=== PATIENT | male | born 1950 | race Caucasian/White ===

== ENCOUNTER 2021-06-10 10:28 | Emergency (ER) | payer MEDICARE, SELFPAY ==
[2021-06-10] VITALS (22 sets, daily range): BP systolic 115–162; BP diastolic 85–109; PULSE 57–95; RESP 10–20; O2SAT 93–100
--- NOTE | ~2021-06-10 | XR_ITS ---
EXAMINATION: XR chest 2V DATE: 06/10/2021 11:11 INDICATION: Supraventricular tachycardia with palpitations TECHNIQUE: PA and lateral views of the chest were obtained. COMPARISON: Chest radiograph dated 10/04/2009 FINDINGS: The lungs remain clear with no focal airspace opacities, pulmonary edema, pleural effusion or pneumot horax. The cardiomediastinal silhouette is normal. Interval progression of now moderate to severe tho racic spondylosis with minimal to mild chronic anterior wedging of a few mid and lower thoracic verte bral bodies. IMPRESSION: 1. No acute cardiopulmonary disease. Reviewed, dictated and finalized at location A. AGE HANDLER
--- NOTE | 2021-06-10 10:32 | ECG_ITS ---
Measurements Intervals [place] Rate: 91 P: 36 ME: 172 QRS: -2 QRSD: 84 T: 59 QT: 363 QTc: 448 Interpretive Statements SINUS RHYTHM VENTRICULAR PREMATURE COMPLEXES BORDERLINE ECG Electronically Signed On 06-10-2021 10:42:35 [employer] by Fei Shepherd D.O.
--- NOTE | 2021-06-10 11:37 | ED.ARRPALP ---
HPI - Arrhythmia/Palpitations General Chief Complaint: Arrhythmia/Palpitations Stated Complaint: fast heart rate - resolved Time Seen by Provider: 06/10/21 11:05 History of Present Illness HPI narrative: Patient is a 71-year-old male who presents to the ER with heart palpitations. Patient reports last week he had 15 minutes of a racing heart. Today he had 2 separate episodes that lasted approximately 15 minutes of his heart racing as well. During the second episode he contacted EMS. EMS found patient to be in SVT, they administered 6 mg of adenosine followed by an additional 12 his adenosine. Patient then converted back to normal sinus rhythm. No chest pain or chest pressure. No shortness of breath. He did feel like his heart was racing. Denies excessive caffeine use. He reports he had 2 sips of coffee today. He has been sleeping well on denies any external stressors. No previous history of arrhythmia. Related Data Allergies Allergy/AdvReac Type Severity Reaction Status Date / Time tetracycline Allergy Mild unknown Verified 02/08/19 13:05 Review of Systems Review of Systems: All systems reviewed & are unremarkable except as noted in HPI and below Constitutional: Constitutional: Denies chills, Denies fever(s) and Denies weakness Cardiovascular: Cardiovascular: Denies chest pain, Reports rapid heart rate and Denies radiating jaw, neck or arm pain Respiratory: Respiratory: Denies cough, Denies dyspnea and Denies wheezing Gastrointestinal: Gastrointestinal: Denies nausea and Denies vomiting PMFSH Past Medical History Medical History (Updated 06/10/21 @ 13:00 by Ming Burgess MD) Asthma Bleeding ulcer Surgical History Surgical History (Updated 06/10/21 @ 11:39 by Ming Burgess MD) History of sinus surgery Social History Social History (Updated 06/10/21 @ 11:39 by Ming Burgess MD) Smoking status: Never smoker Exam Narrative: GENERAL: Well-appearing, well-nourished, and in no acute distress. HEAD: Normocephalic, atraumatic. EYES: PERRL and EOMI. CHEST: Clear to auscultation. No respiratory distress. HEART: Regular rate and rhythm. No murmur heard. Normal peripheral pulses. ABDOMEN: Soft, nontender, nondistended. EXTREMITIES: Normal range of motion. No edema. SKIN: Warm, dry, no rash. NEURO: Alert and oriented x3. PSYCH: Normal mood and affect. Course Course Emergency Course: Discussed with Alfreda MILES with cardiology. Will work to get close follow-up in clinic with the patient. Would recommend metoprolol 12.5 mg as needed for palpitations given the fact that his heart rate is currently 62 bpm and his blood pressure is 115/86 mmHg. Discussed diagnosis and treatment plan with patient and in the follow-up verbalized understanding. Will give PCP follow-up but he needs to establish care with a PCP in general. Vital Signs Vital signs: Vital Signs Pulse Rate 95 06/10/21 10:28 Respiratory Rate 18 06/10/21 10:28 Pulse Oximetry 99 06/10/21 10:28 Pulse Rate 63 06/10/21 12:16 Respiratory Rate 12 06/10/21 12:16 Blood Pressure 115/86 06/10/21 12:16 Pulse Oximetry 97 06/10/21 12:16 MDM - Arrhythmia/Palpitations Lab Data Result diagrams: 06/10/21 12:18 06/10/21 12:18 Labs: Lab Results 06/10/21 06/10/21 06/10/21 Range/Units 12:18 12:18 12:18 WBC 8.0 (4.5-10.0) K/mm3 RBC 5.29 (4.6-6.20) M/mm3 Hgb 16.6 (14.0-18.0) g/dL Hct 48.0 (42.0-52.0) % MCV 90.7 (80-100) fl MCH 31.4 (26-34) pg MCHC 34.6 (32-36) g/dl RDW 12.8 (11.5-14.5) % Plt Count 240 (150-375) k/mm3 MPV 10.8 H (7.4-10.4) fl Immature Gran % (Auto) 0.4 (0-0.5) % Neut % (Auto) 74.5 H (45.5-73.1) % Lymph % (Auto) 15.3 L (18.3-44.2) % [place] % (Auto) 7.1 (2.6-8.5) % Eos % (Auto) 1.5 (0-4.4) % Baso % (Auto) 1.2 (0.2-1.2) % Lymph # (Auto) 1.23 (0.9-3.2) K/mm3 [place] # (Auto) 0.6 (0.1-
[2021-06-10] MEDS: ASPIRIN 81 MG CHEWABLE TABLET 324 MG PO (12:20)
[2021-06-10 12:26] LABS: Basophils Absolute Auto 0.1 K/mm3 (0.0-0.1); Basophils Percent Auto 1.2 % (0.2-1.2); Eosinophils Absolute Auto 0.1 K/mm3 (0-0.3); Eosinophils Percent Auto 1.5 % (0-4.4); Hemoglobin 16.6 g/dL (14.0-18.0); Immature Granulocyte Absolute 0.03 K/mm3 (0.00-0.031); Immature Granulocyte Percent A 0.4 % (0-0.5); Lymphocytes Absolute Auto 1.23 K/mm3 (0.9-3.2); Lymphocytes Percent Auto 15.3 % (18.3-44.2); Mean Corpuscular HGB Conc 34.6 g/dl (32-36); Mean Corpuscular Hemoglobin 31.4 pg (26-34); Mean Corpuscular Volume 90.7 fl (80-100); Mean Platelet Volume 10.8 fl (7.4-10.4); Monocytes Absolute Auto 0.6 K/mm3 (0.1-0.6); Monocytes Percent Auto 7.1 % (2.6-8.5); Neutrophils Percent Auto 74.5 % (45.5-73.1); Platelet Count Result 240 k/mm3 (150-375); Red Blood Count 5.29 M/mm3 (4.6-6.20); Red Cell Distribution Width 12.8 % (11.5-14.5)
[2021-06-10 12:39] LABS: Alanine Aminotransferase 34 U/L (4-50); Albumin Level 4.7 g/dL (3.5-5.1); Alkaline Phosphatase 40 U/L (38-126); Anion Gap 10 mmol/L (8-16); Aspartate Amino Transferase 29 U/L (17-59); Bilirubin,Total 0.6 mg/dL (0.2-1.3); Blood Urea Nitrogen 20 mg/dL (9-20); Calcium 9.4 mg/dL (8.4-10.2); Carbon Dioxide 22 mmol/L (22-30); Chloride 105 mmol/L (98-107); Estimated CRCL calculation 57 ml/min; Estimated Glomerular Filt Rate 60; Glucose 138 mg/dL (65-110); Lipase 144 U/L (23-300); Potassium 4.2 mmol/L (3.4-5.0); Prothrombin Time 12.8 Seconds (11.1-14.7); Sodium 137 mmol/L (137-145)
[2021-06-10 12:40] LABS: Partial Thromboplastin Time 30.5 SECONDS (22.3-36.8)
[2021-06-10 12:50] LABS: Troponin I 0.027 ng/mL (0.000-0.034)
== END 2021-06-10 13:39 | disposition home or self-care (01) ==
PROVIDERS: Emergency Medicine; Emergency Provider Emergency Medicine
DX: I47.1 Supraventricular tachycardia (principal); J45.909 Unspecified asthma, uncomplicated
CPT/HCPCS: 36415; 71046; 80053; 83690; 84484; 85025; 85610; 85730; 93005; 99284; A9270

== ENCOUNTER 2021-07-14 12:46 | Emergency (ER) | payer MEDICARE, SELFPAY ==
[2021-07-14 12:46] VITALS: BP 121/63; PULSE 71; RESP 16; TEMP 36.9; O2SAT 93
[2021-07-14 14:43] VITALS: BP 91/54; PULSE 70; RESP 20; TEMP 36.8; O2SAT 93
[2021-07-14 16:42] VITALS: BP 119/65; PULSE 63; RESP 20; TEMP 36.7; O2SAT 93
--- NOTE | 2021-07-14 17:57 | PC.NURSE ---
pt left dept with his , iv was removed. encouraged to return if they thought necessary. family agreeable to this
== END 2021-07-15 04:38 | disposition left against medical advice (07) ==
PROVIDERS: PCP Family Medicine
DX: R53.1 Weakness (principal)
CPT/HCPCS: 99199

== ENCOUNTER 2021-07-16 09:21 | Inpatient (IN) | payer MEDICARE, SELFPAY ==
[2021-07-16] VITALS (16 sets, daily range): BP systolic 117–129; BP diastolic 67–80; PULSE 57–65; RESP 16–24; TEMP 36.6–37.5; O2SAT 85–100
--- NOTE | ~2021-07-16 | XR_ITS ---
EXAMINATION: XR chest 1V portable DATE: 07/16/2021 09:47 INDICATION: Shortness of breath. COVID-19 pneumonia. TECHNIQUE: A single frontal view of the chest was obtained. COMPARISON: Chest 2 views 06/10/2021 FINDINGS: The lung volumes are small. There are airspace opacities in the mid and lower lung zones. N o pleural effusion or pneumothorax. The heart size is normal. IMPRESSION: 1. Small lung volumes with airspace opacities in the mid and lower lung zones, consistent with COVID- 19 pneumonia. Reviewed, dictated and finalized at location A. WORKER IMPRESSION: 1. Small lung volumes with airspace opacities in the mid and lower lung zones, consistent with COVID-19 pneumonia.
--- NOTE | 2021-07-16 09:30 | ECG_ITS ---
Measurements Intervals [place] Rate: 61 P: 39 [place]: 161 QRS: 40 QRSD: 82 T: 64 QT: 390 QTc: 395 Interpretive Statements SINUS RHYTHM NORMAL ECG Electronically Signed On 07-16-2021 9:58:17 [employer] by Fei Shepherd D.O.
[2021-07-16 10:02] LABS: Basophils Percent Auto 0.2 % (0.2-1.2); Hemoglobin 14.8 g/dL (14.0-18.0); Immature Granulocyte Absolute 0.02 K/mm3 (0.00-0.031); Immature Granulocyte Percent A 0.3 % (0-0.5); Lymphocytes Absolute Auto 0.88 K/mm3 (0.9-3.2); Lymphocytes Percent Auto 14.6 % (18.3-44.2); Mean Corpuscular HGB Conc 33.6 g/dl (32-36); Mean Corpuscular Hemoglobin 30.2 pg (26-34); Mean Corpuscular Volume 89.8 fl (80-100); Mean Platelet Volume 12.5 fl (7.4-10.4); Monocytes Absolute Auto 0.4 K/mm3 (0.1-0.6); Monocytes Percent Auto 6.3 % (2.6-8.5); Neutrophils Absolute Auto 4.8 K/mm3 (1.3-6.7); Neutrophils Percent Auto 78.6 % (45.5-73.1); Platelet Count Result 104 k/mm3 (150-375); Red Cell Distribution Width 13.1 % (11.5-14.5)
[2021-07-16 10:11] LABS: Lactic Acid Reflex 1.4 mmol/L (0.7-2.1)
[2021-07-16 10:15] LABS: Alanine Aminotransferase 257 U/L (4-50); Albumin Level 3.5 g/dL (3.5-5.1); Alkaline Phosphatase 80 U/L (38-126); Anion Gap 10 mmol/L (8-16); Aspartate Amino Transferase 510 U/L (17-59); Bilirubin,Total 0.9 mg/dL (0.2-1.3); Blood Urea Nitrogen 28 mg/dL (9-20); CRP 8.3 mg/dL (<1.0); Calcium 8.1 mg/dL (8.4-10.2); Carbon Dioxide 24 mmol/L (22-30); Chloride 97 mmol/L (98-107); Estimated CRCL calculation 39 ml/min; Estimated Glomerular Filt Rate 38; Glucose 119 mg/dL (65-110); Potassium 3.9 mmol/L (3.4-5.0); Prothrombin Time 13.2 Seconds (11.1-14.7); Sodium 131 mmol/L (137-145)
[2021-07-16 10:16] LABS: Partial Thromboplastin Time 34.1 SECONDS (22.3-36.8)
[2021-07-16 10:26] LABS: Large Platelets Present
--- NOTE | 2021-07-16 10:49 | ED.GENADULT ---
HPI - General Adult General Chief complaint: Weakness Stated complaint: COVID +-WEAKNESS Time Seen by Provider: 07/16/21 09:29 History of Present Illness HPI narrative: Patient is a 71-year-old male who presents ER with shortness of breath. Had a positive home Covid test. He has had loss of taste and smell. Ongoing since just after [place]. Unvaccinated. Came to the ER couple days ago but left before being seen. found that he was hypoxic into the 80s on their pulse oximeter at home and opted to come be evaluated. Related Data Home Medications Medication Instructions Recorded Confirmed fluticasone furoate 100 1 inh INHALATION DAILY 07/07/21 07/16/21 mcg-vilanterol 25 mcg/dose inhalation powder fluticasone propionate 50 2 spray INTRANASAL DAILY 07/07/21 07/16/21 mcg/actuation nasal spray,suspension Allergies Allergy/AdvReac Type Severity Reaction Status Date / Time tetracycline Allergy Mild Abdominal Verified 07/16/21 13:57 Pain Review of Systems Review of Systems: All systems reviewed & are unremarkable except as noted in HPI and below Constitutional: Constitutional: Reports chills, Reports fatigue and Reports fever(s) ENT: Reports nasal congestion and Denies sore throat Cardiovascular: Cardiovascular: Denies chest pain and Denies radiating jaw, neck or arm pain Respiratory: Respiratory: Denies chest congestion, Reports cough, Reports dyspnea and Denies wheezing Gastrointestinal: Gastrointestinal: Denies abdominal pain, Denies nausea and Denies vomiting Neurologic: Denies focal weakness and Denies numbness PMFSH Past Medical History Medical History Asthma Bleeding ulcer GERD (gastroesophageal reflux disease) Surgical History Surgical History History of sinus surgery Family History Family History Father Thyroid disorder Sibling Asthma Grandparent Cancer Cerebrovascular accident Social History Social History Smoking status: Never smoker Alcohol intake: current Drinks per week: 7 Alcohol use details: vodka Substance use: never Gender identity (if verbalized by the patient): Male Sexual Orientation (if Verbalized by the Patient): Straight or Heterosexual Exam Narrative: GENERAL: Well-appearing, well-nourished, and in no acute distress. HEAD: Normocephalic, atraumatic. Eyes: PERRL, EOMI. CHEST: Clear to auscultation. No respiratory distress. HEART: Regular rate and rhythm. Normal peripheral pulses. ABDOMEN: Soft, nontender, nondistended. EXTREMITIES: Normal range of motion. No edema. SKIN: Warm, dry, no rash. NEURO: Alert and oriented x3. PSYCH: Normal mood and affect. Course Course Emergency Course: Admit to hospitalist service. Updated patient's marine engineering teacher who had referred patient to the ER. Vital Signs Vital signs: Vital Signs Temperature 99.5 F 07/16/21 09:30 Pulse Rate 65 07/16/21 09:30 Respiratory Rate 20 07/16/21 09:30 Blood Pressure 120/67 07/16/21 09:30 Pulse Oximetry 85 L 07/16/21 09:30 Temperature 99.5 F 07/16/21 09:30 Pulse Rate 59 L 07/16/21 12:54 Respiratory Rate 19 07/16/21 12:54 Blood Pressure 120/69 07/16/21 12:00 Pulse Oximetry 94 07/16/21 12:00 Medical Decision Making Vital Signs Vital Signs: Vital Signs Temperature 99.5 F 07/16/21 09:30 Pulse Rate 65 07/16/21 09:30 Respiratory Rate 20 07/16/21 09:30 Blood Pressure 120/67 07/16/21 09:30 Pulse Oximetry 85 L 07/16/21 09:30 Temperature 99.5 F 07/16/21 09:30 Pulse Rate 59 L 07/16/21 12:54 Respiratory Rate 19 07/16/21 12:54 Blood Pressure 120/69 07/16/21 12:00 Pulse Oximetry 94 07/16/21 12:00 Lab Data Result diagrams: 07/16/21 09:51 07/16/21 09:51
[2021-07-16 12:14] LABS: EDCOVIDSCREEN Positive (Negative)
--- NOTE | 2021-07-16 14:00 | PC.NURSE ---
Pt states he still feels weak all over, denies headache and chest pain,
--- NOTE | 2021-07-16 16:14 | PC.NURSE ---
Spoke with , Ida, gave update on patient.
--- NOTE | 2021-07-16 16:30 | PC.NURSE ---
ordered pt dinner tray
--- NOTE | 2021-07-16 19:17 | PC.NURSE ---
Report received from JOSHUA Sigala. [facility]AR faxed per off going RN as bed assignment received.
--- NOTE | 2021-07-16 19:50 | PC.NURSE ---
Attempt to call report, floor unable to take at present time.
--- NOTE | 2021-07-16 20:45 | ADMGEN ---
This patient, Bill Muir, was admitted to [facility] Surg Room 317-01. Patient/family oriented to hospital policies and general routines including ID bracelet, bed and alarms, visiting hours, pain management, procedures, bathroom and other care routines, personal items, smoking policy, room service/diet, and visiting hours. Information on how to activate the Rapid Response Team has been discussed. Patient/Family are encouraged to report perceived risks to care and to ask questions if they do not understand what they are told or what they should do.
[2021-07-17] VITALS (7 sets, daily range): BP systolic 107–128; BP diastolic 67–75; PULSE 54–78; RESP 16–20; TEMP 36.2–36.8; O2SAT 90–96
--- NOTE | 2021-07-17 00:55 | PM.IMHP ---
H&P: HPI History of Present Illness Date/Time: 07/17/21 00:55 Chief Complaint: Fatigue Narrative: This is a 71-year-old male with past medical history significant for asthma, gastroesophageal reflux disease, peptic ulcer. Patient presented to the emergency room due to fatigue, fevers, chills, night sweats, low energy, poor appetite. Patient tested positive for COVID and things did not get better, progressively got worse. In emergency room preliminary workup was significant for chest x-ray with bilateral infiltrates. Patient states that he had a gathering at home with family members on and 1 0 his relative tested positive for COVID as well. Review of Systems Review of Systems: Fatigue poor appetite Constitutional: Constitutional: Reports chills, Reports fatigue, Reports fever(s), Reports lethargy, Reports malaise, Reports poor appetite and Reports weakness Eyes: Eyes: Denies change in vision ENT: Denies dysphagia, Denies nasal congestion, Denies nasal discharge, Denies nasal obstruction and Denies odynophagia Cardiovascular: Cardiovascular: Denies chest pain, Denies pedal edema, Denies leg edema, Denies radiating jaw, neck or arm pain, Denies palpitations, Reports dyspnea, Denies dyspnea on exertion and Denies orthopnea Respiratory: Respiratory: Reports cough, Denies excessive phlegm production and Reports dyspnea Comments: scanty production of sputum Gastrointestinal: Gastrointestinal: Denies abdominal pain, Denies dyspepsia, Denies heartburn, Denies diarrhea, Denies nausea and Denies vomiting Genitourinary: Genitourinary: Denies dysuria Musculoskeletal: Musculoskeletal: Denies back pain, Reports myalgias, Denies arthralgias and Denies joint swelling Integumentary/Breasts: Skin/Breast: Denies rash Neurologic: Denies focal weakness and Denies Sensory deficit (Neuro) Psychiatric: Psychiatric: Reports no additional psychiatric complaints and Reports as per HPI Endocrine: Endocrine: Denies cold intolerance, Denies excessive sweating, Denies polyphagia, Denies polydipsia and Denies palpitations Hematologic/Lymphatic: Hematologic/Lymphatic: Reports no additional hematologic/lymphatic complaints and Reports as per HPI Allergic/Immunologic: Allergic/Immunologic: Reports no additional allergic/immunologic complaints and Reports as per HPI [facility] Past Medical History Medical History Asthma Bleeding ulcer GERD (gastroesophageal reflux disease) Surgical History Surgical History History of sinus surgery Family History Family History Father Thyroid disorder Sibling Asthma Grandparent Cancer Cerebrovascular accident Social History Social History Smoking status: Never smoker Alcohol intake: current Drinks per week: 6 Alcohol use details: vodka Substance use: never Gender identity (if verbalized by the patient): Male Sexual Orientation (if Verbalized by the Patient): Straight or Heterosexual Spiritual care concerns: No Meds Home Medications and Allergies Home Medications Medication Instructions Recorded Confirmed Type fluticasone furoate 100 1 inh INHALATION DAILY 07/07/21 07/16/21 History mcg-vilanterol 25 mcg/dose inhalation powder fluticasone propionate 50 2 spray INTRANASAL DAILY 07/07/21 07/16/21 History mcg/actuation nasal spray,suspension Allergies Allergy/AdvReac Type Severity Reaction Status Date / Time tetracycline Allergy Mild Abdominal Verified 07/16/21 13:57 Pain Vital Signs Vital Signs - 24 hr 07/16/21 09:30 07/16/21 09:50 07/16/21 09:51 Temperature 99.5 F Pulse Rate 65 63 Respiratory Rate 20 Blood Pressure 120/67 Pulse Oximetry 85 L 97 07/16/21 11:27 07/16/21 11:44 07/16/21 11:47 Temperature P
[2021-07-17 02:02] LABS: Prothrombin Time 13.2 Seconds (11.1-14.7)
[2021-07-17 02:05] LABS: Alanine Aminotransferase 244 U/L (4-50); Estimated CRCL calculation 49 ml/min; Estimated Glomerular Filt Rate 50
[2021-07-17] MEDS: cefTRIAXone 2 GM in SODIUM CHLORIDE 0.9% IV 100 ML 200 ML IVPB (02:10)
[2021-07-17] MEDS: REMDESIVIR 200 MG/NS 250 ML 200 MG/250 ML BAG 250 MG IVPB (03:11)
[2021-07-17] MEDS: FLUTICASONE/SALMETEROL 115-21 MCG (*SP) INHALER 2 PUFF INHALATION (07:53)
[2021-07-17] MEDS: ALBUTEROL SULFATE (*SP) INHALER 2 PUFF INHALATION ×2 (07:53→14:32)
[2021-07-17] MEDS: FLUTICASONE PROPIONATE 0.05% NA SPR 16 GM BTL (*BKC) 2 SPRAY NASAL (09:32)
[2021-07-17] MEDS: PANTOPRAZOLE 40 MG TABLET PO (09:32)
[2021-07-17] MEDS: ENOXAPARIN 40 MG/0.4 ML SYRINGE SUB-Q ×2 (09:33→22:06)
--- NOTE | 2021-07-17 10:00 | PM.IMPN ---
Progress Note: A&P Assessment and Plan (1) Pneumonia due to 2019-nCoV: Code(s): U07.1 - COVID-19; J12.82 - Pneumonia due to coronavirus disease 2019 Status: Acute Assessment and Plan: Tested positive either 07/14-07/15 chest xray: Small lung volumes with airspace opacities in the mid and lower lung zones, consistent with COVID-19 pneumonia. Check inflammatory markers in the am Sputum culture ordered Blood cultures pending IS and cornette therapy Supplemental oxygen wean to maintain saturations greater than 92% Continue Rocephin Zithromax for antibacterial. Continue remdesivir and dexamethasone Supportive care (2) Hypoxia: Code(s): R09.02 - Hypoxemia Status: Acute Assessment and Plan: Patient dropped into the 80s oxygen applied Spot check pulse ox Continue to monitor Breathing treatments (3) Asthma: Qualifiers: Asthma severity: unspecified severity Asthma persistence: unspecified Asthma complication type: unspecified Qualified Code(s): J45.909 - Unspecified asthma, uncomplicated Code(s): J45.909 - Unspecified asthma, uncomplicated Status: Acute Assessment and Plan: Continue home meds Not actively wheezing Continue to monitor (4) GERD (gastroesophageal reflux disease): Code(s): K21.9 - Gastro-esophageal reflux disease without esophagitis Status: Acute Assessment and Plan: PPI as needed (5) Transaminitis: Code(s): R74.01 - Elevation of levels of liver transaminase levels Status: Acute Assessment and Plan: AST/ALT 510/257 Continue to trend labs hep in the am no complaints of pain Consider RUQ pain (6) OZZY (acute kidney injury): Code(s): N17.9 - Acute kidney failure, unspecified Status: Acute Assessment and Plan: BUN/CR 28/1.80 Probably has a component of dehydration trend labs Creatinine is down to 1.40 Hold on IV fluids for now with covid diagnosis Time Spent With Patient Time with patient: 25 - 35 minutes Subjective Date/time seen: 07/17/21 10:00 Interval history: Date/Time: 07/17/21 00:55 Narrative: This is a 71-year-old male with past medical history significant for asthma, gastroesophageal reflux disease, peptic ulcer. Patient presented to the emergency room due to fatigue, fevers, chills, night sweats, low energy, poor appetite. Patient tested positive for COVID and things did not get better, progressively got worse. In emergency room preliminary workup was significant for chest x-ray with bilateral infiltrates. Patient states that he had a gathering at home with family members on and 1 0 his relative tested positive for COVID as well. Date/Time 07/17/21 1000 Patient is lying in bed. Patient stated that he has not been up since he has gotten here. He does say that he is very weak and congested. He is not short of breath at rest however he does not know be short of breath with activity since he has not been out of that. Patient stated that he is tired with no energy and denies chest pain, sweats, fevers, chills, abdominal pain, nausea, vomiting, diarrhea, constipation. Patient does have a cough which he said is productive if he really needed to be however it is mostly dry. Patient did say that his appetite was okay however everything taste bland. Patient was tested positive either Wednesday or Wednesday of this week and he is not currently vaccinated. Review of Systems Review of Systems: All systems reviewed & are unremarkable except as noted in HPI and below Exam Const: General: cooperative, comfortable, no acute distress, well developed, alert, awake and ill appearing Nutritional Appearance: thin Orientation/consciousness: oriented to person, oriented to place, oriented to time and patient oriented x3 HENMT: Head: normal to inspection, normocephalic and atraumatic Ears: hearing
--- NOTE | 2021-07-17 10:00 | P.PNIM_ITS ---
Progress Note: A&P Assessment and Plan (1) Pneumonia due to 2019-nCoV: Code(s): U07.1 - COVID-19; J12.82 - Pneumonia due to coronavirus disease 2019 Status: Acute Assessment and Plan: * Tested positive either 07/14-07/15 * chest xray: Small lung volumes with airspace opacities in the mid and lower lung zones, consistent with COVID-19 pneumonia. * Check inflammatory markers in the am * Sputum culture ordered * Blood cultures pending * IS and cornette therapy * Supplemental oxygen wean to maintain saturations greater than 92% * Continue Rocephin Zithromax for antibacterial. * Continue remdesivir and dexamethasone * Supportive care (2) Hypoxia: Code(s): R09.02 - Hypoxemia Status: Acute Assessment and Plan: * Patient dropped into the 80s * oxygen applied * Spot check pulse ox * Continue to monitor * Breathing treatments (3) Asthma: Qualifiers: Asthma severity: unspecified severity Asthma persistence: unspecified Asthma complication type: unspecified Qualified Code(s): J45.909 - Unspecified asthma, uncomplicated Code(s): J45.909 - Unspecified asthma, uncomplicated Status: Acute Assessment and Plan: * Continue home meds * Not actively wheezing * Continue to monitor (4) GERD (gastroesophageal reflux disease): Code(s): K21.9 - Gastro-esophageal reflux disease without esophagitis Status: Acute Assessment and Plan: * PPI as needed (5) Transaminitis: Code(s): R74.01 - Elevation of levels of liver transaminase levels Status: Acute Assessment and Plan: * AST/ALT 510/257 * Continue to trend labs * hep in the am * no complaints of pain * Consider RUQ pain (6) OZZY (acute kidney injury): Code(s): N17.9 - Acute kidney failure, unspecified Status: Acute Assessment and Plan: * BUN/CR 28/1.80 * Probably has a component of dehydration * trend labs * Creatinine is down to 1.40 * Hold on IV fluids for now with covid diagnosis Time Spent With Patient Time with patient: 25 - 35 minutes Subjective Date/time seen: 07/17/21 10:00 Interval history: Date/Time: 07/17/21 00:55 Narrative: This is a 71-year-old male with past medical history significant for asthma, gastroesophageal reflux disease, peptic ulcer. Patient presented to the emergency room due to fatigue, fevers, chills, night sweats, low energy, poor appetite. Patient tested positive for COVID and things did not get better, progressively got worse. In emergency room preliminary workup was significant for chest x-ray with bilateral infiltrates. Patient states that he had a gathering at home with family members on and 1 0 his relative tested positive for COVID as well. Date/Time 07/17/21 1000 Patient is lying in bed. Patient stated that he has not been up since he has gotten here. He does say that he is very weak and congested. He is not short of breath at rest however he does not know be short of breath with activity since he has not been out of that. Patient stated that he is tired with no energy and denies chest pain, sweats, fevers, chills, abdominal pain, nausea, vomiting, diarrhea, constipation. Patient does have a cough which he said is productive if he really needed to be however it is mostly dry. Patient did say that his appetite was okay however everything taste bland. Patient was tested positive either Wednesday or
[2021-07-17] MEDS: REMDESIVIR 100 MG/NS 250 ML 100 MG/250 ML BAG 250 MG IVPB (22:05)
--- NOTE | 2021-07-17 23:29 | PCRCNOTE ---
Albuterol inhaler scheduled for 07/17/21 at 20:00 not administered. RT not available during administration window due to priorities in the Emergency Department.
[2021-07-18] VITALS (9 sets, daily range): BP systolic 113–128; BP diastolic 69–75; PULSE 52–82; RESP 14–20; TEMP 36.5–37.1; O2SAT 90–97
[2021-07-18] MEDS: ALBUTEROL SULFATE (*SP) INHALER 2 PUFF INHALATION ×4 (02:19→19:18)
[2021-07-18] MEDS: cefTRIAXone 2 GM in SODIUM CHLORIDE 0.9% IV 100 ML 200 ML IVPB ×2 (02:26→21:10)
[2021-07-18 07:27] LABS: Basophils Percent Auto 0.1 % (0.2-1.2); Hematocrit 43.4 % (42.0-52.0); Hemoglobin 14.6 g/dL (14.0-18.0); Immature Granulocyte Percent A 1.3 % (0-0.5); Lymphocytes Absolute Auto 0.54 K/mm3 (0.9-3.2); Lymphocytes Percent Auto 7.3 % (18.3-44.2); Mean Corpuscular HGB Conc 33.6 g/dl (32-36); Mean Corpuscular Hemoglobin 30.2 pg (26-34); Mean Corpuscular Volume 89.7 fl (80-100); Mean Platelet Volume 11.9 fl (7.4-10.4); Monocytes Absolute Auto 0.7 K/mm3 (0.1-0.6); Monocytes Percent Auto 9.4 % (2.6-8.5); Neutrophils Absolute Auto 6.1 K/mm3 (1.3-6.7); Neutrophils Percent Auto 81.9 % (45.5-73.1); Platelet Count Result 200 k/mm3 (150-375); Red Blood Count 4.84 M/mm3 (4.6-6.20); White Blood Count 7.4 K/mm3 (4.5-10.0)
[2021-07-18 07:39] LABS: INR 1.1; Prothrombin Time 13.8 Seconds (11.1-14.7)
[2021-07-18 07:42] LABS: D Dimer 0.59 ug/mL (<0.48)
[2021-07-18 07:50] LABS: Crenated RBC 1+ (NORMAL); Platelet Estimate Adequate (Adequate)
--- NOTE | 2021-07-18 08:10 | P.PNIM_ITS ---
Progress Note: A&P Assessment and Plan (1) Pneumonia due to 2019-nCoV: Code(s): U07.1 - COVID-19; J12.82 - Pneumonia due to coronavirus disease 2019 Status: Acute Assessment and Plan: * Tested positive either 07/14-07/15 * chest xray: Small lung volumes with airspace opacities in the mid and lower lung zones, consistent with COVID-19 pneumonia. * Inflammatory markers: Dimer 0.59, Ferritin >2000, LDH 942, CRP 5.9 * Sputum culture shows gram positive cocci in clusters , gram negative bacilli, and moderate WBC * Blood cultures NGTD * IS and cornette therapy * Supplemental oxygen wean to maintain saturations greater than 92% * Continue Rocephin Zithromax for antibacterial. * Tailor antibiotics to culture results * Continue remdesivir and dexamethasone * Supportive care (2) Hypoxia: Code(s): R09.02 - Hypoxemia Status: Acute Assessment and Plan: * Patient dropped into the 80s * oxygen applied, was able to wean to RA * Spot check pulse ox * Continue to monitor * Breathing treatments (3) Asthma: Qualifiers: Asthma severity: unspecified severity Asthma persistence: unspecified Asthma complication type: unspecified Qualified Code(s): J45.909 - Unspecified asthma, uncomplicated Code(s): J45.909 - Unspecified asthma, uncomplicated Status: Acute Assessment and Plan: * Continue home meds * Not actively wheezing * Continue to monitor (4) GERD (gastroesophageal reflux disease): Code(s): K21.9 - Gastro-esophageal reflux disease without esophagitis Status: Acute Assessment and Plan: * PPI as needed (5) Transaminitis: Code(s): R74.01 - Elevation of levels of liver transaminase levels Status: Acute Assessment and Plan: * AST/ALT 510/257, trending down 109/119 * Continue to trend labs * hep in the am * no complaints of pain * Consider RUQ pain (6) OZZY (acute kidney injury): Code(s): N17.9 - Acute kidney failure, unspecified Status: Acute Assessment and Plan: * BUN/CR 28/1.80 * Probably has a component of dehydration * trend labs * Creatinine is down to 1.30, seems correcting * Hold on IV fluids for now with covid diagnosis Time Spent With Patient Time with patient: 25 - 35 minutes Subjective Date/time seen: 07/18/21 0810 Interval history: Date/Time: 07/17/21 00:55 Narrative: This is a 71-year-old male with past medical history significant for asthma, gastroesophageal reflux disease, peptic ulcer. Patient presented to the emergency room due to fatigue, fevers, chills, night sweats, low energy, poor appetite. Patient tested positive for COVID and things did not get better, progressively got worse. In emergency room preliminary workup was significant for chest x-ray with bilateral infiltrates. Patient states that he had a gathering at home with family members on and 1 0 his relative tested positive for COVID as well. Date/Time 07/17/21 1000 Patient is lying in bed. Patient stated that he has not been up since he has gotten here. He does say that he is very weak and congested. He is not short of breath at rest however he does not know be short of breath with activity since he has not been out of that. Patient stated that he is tired with no energy and denies chest pain, sweats, fevers, chills, abdominal pain, nausea, vomiting, diarrhea, constipation. Patient does have a cough which
--- NOTE | 2021-07-18 08:10 | PM.IMPN ---
Progress Note: A&P Assessment and Plan (1) Pneumonia due to 2019-nCoV: Code(s): U07.1 - COVID-19; J12.82 - Pneumonia due to coronavirus disease 2019 Status: Acute Assessment and Plan: Tested positive either 1/3-/ chest xray: Small lung volumes with airspace opacities in the mid and lower lung zones, consistent with COVID-19 pneumonia. Inflammatory markers: Dimer 0.59, Ferritin >2000, LDH 942, CRP 5.9 Sputum culture shows gram positive cocci in clusters , gram negative bacilli, and moderate WBC Blood cultures NGTD IS and cornette therapy Supplemental oxygen wean to maintain saturations greater than 92% Continue Rocephin Zithromax for antibacterial. Tailor antibiotics to culture results Continue remdesivir and dexamethasone Supportive care (2) Hypoxia: Code(s): R09.02 - Hypoxemia Status: Acute Assessment and Plan: Patient dropped into the 80s oxygen applied, was able to wean to RA Spot check pulse ox Continue to monitor Breathing treatments (3) Asthma: Qualifiers: Asthma severity: unspecified severity Asthma persistence: unspecified Asthma complication type: unspecified Qualified Code(s): J45.909 - Unspecified asthma, uncomplicated Code(s): J45.909 - Unspecified asthma, uncomplicated Status: Acute Assessment and Plan: Continue home meds Not actively wheezing Continue to monitor (4) GERD (gastroesophageal reflux disease): Code(s): K21.9 - Gastro-esophageal reflux disease without esophagitis Status: Acute Assessment and Plan: PPI as needed (5) Transaminitis: Code(s): R74.01 - Elevation of levels of liver transaminase levels Status: Acute Assessment and Plan: AST/ALT 510/257, trending down 109/119 Continue to trend labs hep in the am no complaints of pain Consider RUQ pain (6) OZZY (acute kidney injury): Code(s): N17.9 - Acute kidney failure, unspecified Status: Acute Assessment and Plan: BUN/CR 28/1.80 Probably has a component of dehydration trend labs Creatinine is down to 1.30, seems correcting Hold on IV fluids for now with covid diagnosis Time Spent With Patient Time with patient: 25 - 35 minutes Subjective Date/time seen: 07/18/21 0810 Interval history: Date/Time: 07/17/21 00:55 Narrative: This is a 71-year-old male with past medical history significant for asthma, gastroesophageal reflux disease, peptic ulcer. Patient presented to the emergency room due to fatigue, fevers, chills, night sweats, low energy, poor appetite. Patient tested positive for COVID and things did not get better, progressively got worse. In emergency room preliminary workup was significant for chest x-ray with bilateral infiltrates. Patient states that he had a gathering at home with family members on and 1 0 his relative tested positive for COVID as well. Date/Time 07/17/21 1000 Patient is lying in bed. Patient stated that he has not been up since he has gotten here. He does say that he is very weak and congested. He is not short of breath at rest however he does not know be short of breath with activity since he has not been out of that. Patient stated that he is tired with no energy and denies chest pain, sweats, fevers, chills, abdominal pain, nausea, vomiting, diarrhea, constipation. Patient does have a cough which he said is productive if he really needed to be however it is mostly dry. Patient did say that his appetite was okay however everything taste bland. Patient was tested positive either Wednesday or Wednesday of this week and he is not currently vaccinated. Date/Time 07/18/21 0810 Patient was lying in bed. Was able to titrate patient to room air. Patient did stand up and is able to walk to the trash can. He also was able to maintain his saturations above 90. Patient did say that he has an occasion
[2021-07-18] MEDS: PANTOPRAZOLE 40 MG TABLET PO (08:27)
[2021-07-18] MEDS: ENOXAPARIN 40 MG/0.4 ML SYRINGE SUB-Q ×2 (08:27→21:09)
[2021-07-18] MEDS: FLUTICASONE PROPIONATE 0.05% NA SPR 16 GM BTL (*BKC) 2 SPRAY NASAL (08:28)
[2021-07-18 08:32] LABS: Alanine Aminotransferase 189 U/L (4-50); Albumin Level 3.6 g/dL (3.5-5.1); Alkaline Phosphatase 64 U/L (38-126); Anion Gap 11 mmol/L (8-16); Aspartate Amino Transferase 109 U/L (17-59); Bilirubin,Total 0.4 mg/dL (0.2-1.3); Blood Urea Nitrogen 33 mg/dL (9-20); CRP 5.9 mg/dL (<1.0); Calcium 8.4 mg/dL (8.4-10.2); Carbon Dioxide 19 mmol/L (22-30); Chloride 103 mmol/L (98-107); Estimated CRCL calculation 53 ml/min; Estimated Glomerular Filt Rate 55; Glucose 186 mg/dL (65-110); Lactate Dehydrogenase 942 U/L (313-618); Magnesium 2.5 mg/dL (1.6-2.3); Potassium 4.2 mmol/L (3.4-5.0); Sodium 133 mmol/L (137-145)
[2021-07-18] MEDS: FLUTICASONE/SALMETEROL 115-21 MCG (*SP) INHALER 2 PUFF INHALATION ×2 (08:46→19:18)
[2021-07-18 09:05] LABS: Thyroid Stimulating Hormone Reflex 0.981 uIU/mL (0.465-4.68)
[2021-07-18 10:00] LABS: Ferritin > 2000.00 ng/mL (11.1-264)
[2021-07-18] MEDS: ONDANSETRON INJ 4 MG/2 ML VIAL IV PUSH (13:05)
[2021-07-18] MEDS: REMDESIVIR 100 MG/NS 250 ML 100 MG/250 ML BAG 250 MG IVPB (21:09)
[2021-07-19] VITALS (7 sets, daily range): BP systolic 120–128; BP diastolic 70–75; PULSE 55–72; RESP 14–18; TEMP 36.4–36.7; O2SAT 91–95
[2021-07-19 08:15] LABS: Alanine Aminotransferase 117 U/L (4-50); Alkaline Phosphatase 54 U/L (38-126); Anion Gap 8 mmol/L (8-16); Aspartate Amino Transferase 43 U/L (17-59); Bilirubin,Total 0.4 mg/dL (0.2-1.3); Blood Urea Nitrogen 32 mg/dL (9-20); Calcium 8.4 mg/dL (8.4-10.2); Carbon Dioxide 21 mmol/L (22-30); Chloride 104 mmol/L (98-107); Estimated CRCL calculation 53 ml/min; Estimated Glomerular Filt Rate 55; Glucose 166 mg/dL (65-110); Magnesium 2.4 mg/dL (1.6-2.3); Potassium 4.6 mmol/L (3.4-5.0); Sodium 133 mmol/L (137-145)
[2021-07-19 08:40] LABS: Basophils Percent Auto 0.1 % (0.2-1.2); Hematocrit 40.2 % (42.0-52.0); Hemoglobin 13.8 g/dL (14.0-18.0); Immature Granulocyte Absolute 0.05 K/mm3 (0.00-0.031); Immature Granulocyte Percent A 0.7 % (0-0.5); Lymphocytes Absolute Auto 0.54 K/mm3 (0.9-3.2); Lymphocytes Percent Auto 7.8 % (18.3-44.2); Mean Corpuscular HGB Conc 34.3 g/dl (32-36); Mean Corpuscular Hemoglobin 30.5 pg (26-34); Mean Corpuscular Volume 88.7 fl (80-100); Mean Platelet Volume 11.4 fl (7.4-10.4); Monocytes Absolute Auto 0.7 K/mm3 (0.1-0.6); Monocytes Percent Auto 10.6 % (2.6-8.5); Neutrophils Absolute Auto 5.6 K/mm3 (1.3-6.7); Neutrophils Percent Auto 80.8 % (45.5-73.1); Platelet Count Result 223 k/mm3 (150-375); Red Blood Count 4.53 M/mm3 (4.6-6.20); Red Cell Distribution Width 13.1 % (11.5-14.5)
[2021-07-19 08:55] LABS: INR 1.1; Prothrombin Time 13.8 Seconds (11.1-14.7)
[2021-07-19 09:10] LABS: Hepatitis B Surface Antigen Negative (Negative)
[2021-07-19 09:16] LABS: HAV RESULT Negative (Negative); Hepatitis B Core IgM Result Negative (Negative)
[2021-07-19 09:27] LABS: Hepatitis C Virus Antibody Negative (Negative)
[2021-07-19] MEDS: PANTOPRAZOLE 40 MG TABLET PO (09:39)
[2021-07-19] MEDS: FLUTICASONE PROPIONATE 0.05% NA SPR 16 GM BTL (*BKC) 2 SPRAY NASAL (09:39)
[2021-07-19] MEDS: ENOXAPARIN 40 MG/0.4 ML SYRINGE SUB-Q ×2 (09:39→20:16)
--- NOTE | 2021-07-19 15:59 | PCRCNOTE ---
Window of time for administration has passed. See next scheduled administration.
--- NOTE | 2021-07-19 16:27 | PM.IMPN ---
Progress Note: A&P Assessment and Plan (1) Pneumonia due to 2019-nCoV: Code(s): U07.1 - COVID-19; J12.82 - Pneumonia due to coronavirus disease 2019 Status: Acute Assessment and Plan: Patient had positive COVID antigen test on 07/16/2021, symptom onset 3 days prior. CXR showed small lung volumes with airspace opacities of the mid and lower lung zones Continue isolation precautions Supplemental O2 as needed with goal sats 92% or above Continue dexamethasone and remdesivir #4. ALT is elevated but is appropriate for continuation of therapy Supportive care to include bronchodilators, antipyretics, incentive spirometry Trend inflammatory markers Sputum culture shows growth of normal oropharyngeal zabrina Will discontinue azithromycin and ceftriaxone as no signs or symptoms to indicate secondary bacterial infection Blood cultures negative to date Patient has not been vaccinated for COVID-19 (2) Hypoxia: Code(s): R09.02 - Hypoxemia Status: Acute Assessment and Plan: Hypoxic down to 85% on presentation. Secondary to COVID-19 Continue supplemental O2 as needed with goal saturation 92% or above Currently requiring 2 L per nasal cannula. Wean oxygen to goal He will need home O2 eval prior to discharge home (3) Asthma: Qualifiers: Asthma severity: unspecified severity Asthma persistence: unspecified Asthma complication type: unspecified Qualified Code(s): J45.909 - Unspecified asthma, uncomplicated Code(s): J45.909 - Unspecified asthma, uncomplicated Status: Acute Assessment and Plan: And not in acute exacerbation. No wheezing on exam Continue Advair Albuterol as needed (4) Transaminitis: Code(s): R74.01 - Elevation of levels of liver transaminase levels Status: Acute Assessment and Plan: LFTs elevated, likely secondary to COVID-19 AST has normalized ALT trending down Hepatitis panel negative Continue to monitor LFTs (5) OZZY (acute kidney injury): Code(s): N17.9 - Acute kidney failure, unspecified Status: Acute Assessment and Plan: Resolved. Creatinine elevated at presentation up to 1.8. Creatinine is 1.3 today This was likely secondary to dehydration. Resolved. Subjective Date/time seen: 07/19/21 16:27 Interval history: Date of service: 07/19/2021 Bill Muir is a 71-year-old male with a history of asthma, GERD, and gastric ulcer who is seen in follow-up for COVID-19 pneumonia. He is feeling well today. His shortness of breath has improved. He is no longer coughing. He is getting up to the bedside commode. Denies headaches or body aches. No nausea, vomiting, fever, chills, dizziness, lightheadedness, diarrhea, abdominal pain. Reports he has been eating well. He has not been using his incentive spirometer because he does not like it. Review of Systems Review of Systems: All systems reviewed & are unremarkable except as noted in HPI and below Exam Narrative: Mr. Muir is a well-nourished, well-appearing 71-year-old male who is lying semi recumbent in bed. He appears comfortable and is in NARD. Neuro: awake, alert and oriented x4, speech clear, no focal neuro deficits noted HEENMT: normocephalic, atraumatic, EOMI, sclerae anicteric, moist oral mucosa Neck: supple, no lymphadenopathy Respiratory: clear to auscultation bilaterally, nonlabored breathing Cardio: regular rate, regular rhythm with S1-S2 Abdomen: nondistended, normoactive bowel sounds, soft, nontender to palpation Extremities: no edema, erythema, or tenderness to palpation, DP pulses 2+ bilaterally Skin: no rashes or lesions, warm and dry Psych: appropriate mood and affect, judgment and insight intact Objective Data Vital Signs Vital Signs: Vital Signs - 24 hr 07/18/21 17:23 07/18/21 19:18 07/18/21 20:00 Temperature 98.0 F Pulse Rate 82 82 Respiratory Rate 20 18 Blood Pressure 12
[2021-07-19] MEDS: REMDESIVIR 100 MG/NS 250 ML 100 MG/250 ML BAG 250 MG IVPB (20:16)
--- NOTE | 2021-07-19 20:28 | PCRCNOTE ---
Pt states he does not like the Albuterol and Advair being administered. Pt states that the Albuterol makes his heart flutter and the Advair does not help him like his home medication does. Pt is refusing treatments for the night of 07/19/2021.
[2021-07-20] VITALS: BP 119/81; PULSE 55; RESP 18; TEMP 36.3; O2SAT 94
[2021-07-20 04:00] VITALS: BP 114/72; PULSE 55; RESP 18; TEMP 36.8; O2SAT 96
[2021-07-20 06:49] LABS: Hemoglobin 14.4 g/dL (14.0-18.0); Mean Corpuscular Hemoglobin 30.4 pg (26-34); Mean Corpuscular Volume 95.1 fl (80-100); Mean Platelet Volume 11.1 fl (7.4-10.4); Platelet Count Result 205 k/mm3 (150-375); Red Blood Count 4.73 M/mm3 (4.6-6.20); Red Cell Distribution Width 13.3 % (11.5-14.5); White Blood Count 8.3 K/mm3 (4.5-10.0)
[2021-07-20 07:06] LABS: Alanine Aminotransferase 97 U/L (4-50); Alkaline Phosphatase 45 U/L (38-126); Anion Gap 8 mmol/L (8-16); Aspartate Amino Transferase 34 U/L (17-59); Bilirubin,Total 0.5 mg/dL (0.2-1.3); Blood Urea Nitrogen 32 mg/dL (9-20); CRP 2.4 mg/dL (<1.0); Calcium 8.2 mg/dL (8.4-10.2); Carbon Dioxide 18 mmol/L (22-30); Chloride 107 mmol/L (98-107); Estimated CRCL calculation 57 ml/min; Estimated Glomerular Filt Rate 60; Glucose 122 mg/dL (65-110); Lactate Dehydrogenase 668 U/L (313-618); Magnesium 2.5 mg/dL (1.6-2.3); Potassium 4.6 mmol/L (3.4-5.0); Sodium 133 mmol/L (137-145)
[2021-07-20 07:16] LABS: INR 1.1; Prothrombin Time 14.2 Seconds (11.1-14.7)
[2021-07-20 08:00] VITALS: BP 138/55; PULSE 54; RESP 16; TEMP 36.4; O2SAT 93
[2021-07-20] MEDS: PANTOPRAZOLE 40 MG TABLET PO (09:05)
[2021-07-20] MEDS: ENOXAPARIN 40 MG/0.4 ML SYRINGE SUB-Q ×2 (09:06→21:07)
[2021-07-20] MEDS: FLUTICASONE PROPIONATE 0.05% NA SPR 16 GM BTL (*BKC) 2 SPRAY NASAL (09:06)
[2021-07-20 12:00] VITALS: BP 123/77; PULSE 55; RESP 14; TEMP 36.7; O2SAT 90; O2SAT 91
--- NOTE | 2021-07-20 15:29 | PM.IMPN ---
Progress Note: A&P Assessment and Plan (1) Pneumonia due to 2019-nCoV: Code(s): U07.1 - COVID-19; J12.82 - Pneumonia due to coronavirus disease 2019 Status: Acute Assessment and Plan: Patient had positive COVID antigen test on 07/16/2021, symptom onset 3 days prior. CXR showed small lung volumes with airspace opacities of the mid and lower lung zones Continue isolation precautions Supplemental O2 as needed with goal sats 92% or above Continue dexamethasone and remdesivir. Dose #5 tonight. ALT 97 Supportive care to include bronchodilators, antipyretics, incentive spirometry Monitor inflammatory markers; trending down Sputum culture shows growth of normal oropharyngeal zabrina Blood cultures negative to date Patient has not been vaccinated for COVID-19 (2) Hypoxia: Code(s): R09.02 - Hypoxemia Status: Acute Assessment and Plan: Hypoxic down to 85% on presentation. Secondary to COVID-19 Continue supplemental O2 as needed with goal saturation 92% or above Currently requiring 2 L per nasal cannula. Wean oxygen to goal Plan for home O2 eval tomorrow morning following final dose of remdesivir tonight. Hopeful discharge tomorrow if continued improvement (3) Asthma: Qualifiers: Asthma severity: unspecified severity Asthma persistence: unspecified Asthma complication type: unspecified Qualified Code(s): J45.909 - Unspecified asthma, uncomplicated Code(s): J45.909 - Unspecified asthma, uncomplicated Status: Acute Assessment and Plan: Not in acute exacerbation. No wheezing on exam Continue Advair Albuterol as needed (4) Transaminitis: Code(s): R74.01 - Elevation of levels of liver transaminase levels Status: Acute Assessment and Plan: LFTs elevated, likely secondary to COVID-19 AST has normalized ALT trending down Hepatitis panel negative Continue to monitor LFTs (5) OZZY (acute kidney injury): Code(s): N17.9 - Acute kidney failure, unspecified Status: Acute Assessment and Plan: Resolved. Creatinine elevated at presentation up to 1.8. Creatinine is 1.2 today This was likely secondary to dehydration. Resolved. Subjective Date/time seen: 07/20/21 15:29 Interval history: Date of service: 07/20/2021 Bill Muir is a 71-year-old male with a history of asthma, GERD, and gastric ulcer who is seen in follow-up for COVID-19 pneumonia. Doing about the same today. Denies any significant dyspnea. No longer coughing. He does complain of feeling pretty weak still and admits he has not been getting much activity besides walking to the bathroom. He has been eating well. He states the portions here are too big for him and he cannot eat all of his food. He denies chest pain. No abdominal pain, nausea, vomiting. He has no additional concerns at this time. Review of Systems Review of Systems: All systems reviewed & are unremarkable except as noted in HPI and below Exam Narrative: Mr. Muir is a well-nourished, well-appearing 71-year-old male who is lying semi recumbent in bed. He appears comfortable and is in NARD. Neuro: awake, alert and oriented x4, speech clear, no focal neuro deficits noted HEENMT: normocephalic, atraumatic, EOMI, sclerae anicteric, moist oral mucosa Neck: supple, no lymphadenopathy Respiratory: clear to auscultation bilaterally, nonlabored breathing Cardio: regular rate, regular rhythm with S1-S2 Abdomen: nondistended, normoactive bowel sounds, soft, nontender to palpation Extremities: no edema, erythema, or tenderness to palpation, DP pulses 2+ bilaterally Skin: no rashes or lesions, warm and dry Psych: appropriate mood and affect, judgment and insight intact Objective Data Vital Signs Vital Signs: Vital Signs - 24 hr 07/19/21 16:00 07/19/21 16:03 07/19/21 20:00 Temperature 97.5 F L 98.0 F Pulse Rate 72 57 L Respiratory Rate 14 18 Blood
[2021-07-20 16:00] VITALS: BP 129/76; PULSE 63; RESP 16; TEMP 36.6; O2SAT 92
[2021-07-20] MEDS: ALBUTEROL SULFATE (*SP) INHALER 2 PUFF INHALATION (19:18)
[2021-07-20] MEDS: FLUTICASONE/SALMETEROL 115-21 MCG (*SP) INHALER 2 PUFF INHALATION (19:18)
[2021-07-20 20:00] VITALS: BP 125/77; PULSE 58; PULSE 63; RESP 16; RESP 20; TEMP 37; O2SAT 92
[2021-07-20] MEDS: REMDESIVIR 100 MG/NS 250 ML 100 MG/250 ML BAG 250 MG IVPB (21:07)
[2021-07-21] VITALS (7 sets, daily range): BP systolic 133–140; BP diastolic 73–93; PULSE 49–523; RESP 16–18; TEMP 35.8–36.5; O2SAT 90–94
[2021-07-21] MEDS: ALBUTEROL SULFATE (*SP) INHALER 2 PUFF INHALATION (00:39)
[2021-07-21] MEDS: ENOXAPARIN 40 MG/0.4 ML SYRINGE SUB-Q (08:07)
[2021-07-21] MEDS: PANTOPRAZOLE 40 MG TABLET PO (08:08)
[2021-07-21] MEDS: FLUTICASONE PROPIONATE 0.05% NA SPR 16 GM BTL (*BKC) 2 SPRAY NASAL (08:09)
[2021-07-21 09:18] LABS: Prothrombin Time 13.2 Seconds (11.1-14.7)
[2021-07-21 09:24] LABS: Alanine Aminotransferase 84 U/L (4-50); Albumin Level 3.4 g/dL (3.5-5.1); Alkaline Phosphatase 50 U/L (38-126); Anion Gap 10 mmol/L (8-16); Aspartate Amino Transferase 31 U/L (17-59); Bilirubin,Total 0.6 mg/dL (0.2-1.3); Blood Urea Nitrogen 32 mg/dL (9-20); Calcium 8.7 mg/dL (8.4-10.2); Carbon Dioxide 20 mmol/L (22-30); Chloride 106 mmol/L (98-107); Estimated CRCL calculation 57 ml/min; Estimated Glomerular Filt Rate 60; Glucose 113 mg/dL (65-110); Potassium 4.5 mmol/L (3.4-5.0); Sodium 136 mmol/L (137-145)
--- NOTE | 2021-07-21 10:30 | PM.DS ---
DS: Admitting Diagnosis Discharge Date Date of service 07/21/2021 @ 10:30 Admitting Diagnosis COVID-19 pneumonia DS: Discharge Diagnosis Discharge Diagnosis (1) Pneumonia due to 2019-nCoV: Code(s): U07.1 - COVID-19; J12.82 - Pneumonia due to coronavirus disease 2019 Status: Acute Assessment and Plan: Patient had positive COVID antigen test on 07/16/2021, symptom onset 3 days prior. CXR showed small lung volumes with airspace opacities of the mid and lower lung zones Continue isolation precautions Supplemental O2 as needed with goal sats 92% or above Continue dexamethasone and remdesivir. Dose #5 tonight. ALT 97 Supportive care to include bronchodilators, antipyretics, incentive spirometry Monitor inflammatory markers; trending down Sputum culture shows growth of normal oropharyngeal zabrina Blood cultures negative to date Patient has not been vaccinated for COVID-19 (2) Hypoxia: Code(s): R09.02 - Hypoxemia Status: Acute Assessment and Plan: Hypoxic down to 85% on presentation. Secondary to COVID-19 Continue supplemental O2 as needed with goal saturation 92% or above Currently requiring 2 L per nasal cannula. Wean oxygen to goal Plan for home O2 eval tomorrow morning following final dose of remdesivir tonight. Hopeful discharge tomorrow if continued improvement (3) Asthma: Qualifiers: Asthma complication type: unspecified Asthma persistence: unspecified Asthma severity: unspecified severity Qualified Code(s): J45.909 - Unspecified asthma, uncomplicated Code(s): J45.909 - Unspecified asthma, uncomplicated Status: Acute Assessment and Plan: Not in acute exacerbation. No wheezing on exam Continue Advair Albuterol as needed (4) Transaminitis: Code(s): R74.01 - Elevation of levels of liver transaminase levels Status: Acute Assessment and Plan: LFTs elevated, likely secondary to COVID-19 AST has normalized ALT trending down Hepatitis panel negative Continue to monitor LFTs (5) OZZY (acute kidney injury): Code(s): N17.9 - Acute kidney failure, unspecified Status: Acute Assessment and Plan: Resolved. Creatinine elevated at presentation up to 1.8. Creatinine is 1.2 today This was likely secondary to dehydration. Resolved. DS: Summary Hospital Course Hospital Course: Patient is a 71-year-old male with a past medical history of asthma, allergies, GERD who presented to the ED for evaluation fevers, chills, sweats, body aches, low energy, poor appetite. Patient was found to be positive for COVID on 07/16/2021. Chest x-ray showed small lung volumes with airspace opacities of the mid and lower lung zones. Patient was treated with IV remdesivir Decadron. Supplemental oxygen was provided to the patient to maintain an oxygen saturation greater than 90%. Inflammatory markers were also trended and have been trending downward. Ferritin 1010, LDH 668 CRP 2.4. Patient was also noted to have elevated liver enzymes which has resolved at this time. Labs also indicated the patient was in acute kidney injury with a creatinine at 1.8. Kidney function and labs have returned back to baseline. Patient states that he feels okay today he does have a cough however he is not getting much up. The patient is concerned about going home however he was satting about 90% with activity. Patient does get a little bit short of breath with activity. Patient walked in the room with me and recovered very quickly. Educated patient about getting vaccinated within 90 days. Patient was concerned about his medications which is the Breo Ellipta and ProAir. Explained to patient that he continue his medications upon discharge. Home O2 evaluation was performed and showed patient needed no oxygen. Patient denies chest pain, nausea, vomiting, diarrhea, constipation, sweats, fevers, chills. Patient is a little woozy on his feet roya
--- NOTE | 2021-07-21 13:14 | PCRCNOTE ---
Home oxygen evaluation completed. Patient does not require home oxygen.
== END 2021-07-21 13:42 | disposition home or self-care (01) | DRG 177 ==
LOC: ANHED 09:31 → ANH3MEDSUR 15:11
PROVIDERS: Internal Medicine; Nurse Practitioner; Admitting Provider Family Medicine; Emergency Provider Emergency Medicine; PCP Family Medicine; Visit Provider Physician Assistant
DX: U07.1 COVID-19 (principal); J12.82 Pneumonia due to coronavirus disease 2019; N17.9 Acute kidney failure, unspecified; R09.02 Hypoxemia; J45.909 Unspecified asthma, uncomplicated; R74.01 Elevation of levels of liver transaminase levels; E86.0 Dehydration; K21.9 Gastro-esophageal reflux disease without esophagitis; Z87.11 Personal history of peptic ulcer disease
CPT/HCPCS: 36415; 71045; 80053; 80074; 82565; 82728; 83605; 83615; 83735; 84443; 84460; 85025; 85027; 85380; 85610; 85730; 86140; 87040; 87070; 87081; 87205; 87426; 87880; 93005; 94618; 94640; 96365; 96367; 96372; 96375; 99285; A9270; C9803; G0378; J0456; J0696; J1100; J1650; J2405

== ENCOUNTER 2022-05-13 01:12 | Day surgery (SDC) | payer MEDICARE, SELFPAY ==
[2022-05-12 13:15] VITALS: BMI 23.1
[2022-05-13] VITALS (7 sets, daily range): BP systolic 105–163; BP diastolic 72–97; PULSE 45–94; RESP 9–15; TEMP 36.8; O2SAT 95–100; BMI 22.5
--- NOTE | 2022-05-13 07:00 | ECG_ITS ---
Measurements Intervals [place] Rate: 90 P: 103 IN: 249 QRS: 28 QRSD: 91 T: 50 QT: 394 QTc: 484 Interpretive Statements ATRIAL FIBRILLATION ABNORMAL ECG COMPARED TO ECG 07/16/2021 09:39:22 ATRIAL FIBRILLATION NOW PRESENT Electronically Signed On 05-13-2022 7:54:17 CDT by Fei Shepherd D.O.
[2022-05-13 07:49] LABS: Anion Gap 11 mmol/L (8-16); Blood Urea Nitrogen 25 mg/dL (9-20); Calcium 8.5 mg/dL (8.4-10.2); Carbon Dioxide 23 mmol/L (22-30); Chloride 105 mmol/L (98-107); Estimated CRCL calculation 41 ml/min; Estimated Glomerular Filt Rate 43; Glucose 112 mg/dL (65-110); Magnesium 2.2 mg/dL (1.6-2.3); Potassium 4.2 mmol/L (3.4-5.0); Sodium 139 mmol/L (137-145)
--- NOTE | 2022-05-13 08:28 | PM.IMHP ---
H&P: HPI History of Present Illness Date/Time: 05/13/22 08:28 Chief Complaint: Atrial fibrillation Narrative: Patient is a 72-year-old male with a history of atrial fibrillation who presents as an outpatient for elective cardioversion. Patient has been on Amiodarone and Xarelto. Has not missed any doses of his Xarelto. Has remained on Xarelto for >4 weeks. Patient is without any cardiac complaints this AM. ECG showing atrial fibrillation with ventricular rates in the 90s. Review of Systems Review of Systems: 12-point ROS obtained. Negative, unless stated in HPI. [facility] Past Medical History Medical History Asthma Bleeding ulcer GERD (gastroesophageal reflux disease) Surgical History Surgical History History of sinus surgery Family History Family History Father Thyroid disorder Sibling Asthma Grandparent Cancer Cerebrovascular accident Social History Social History Smoking status: Never smoker Second hand tobacco smoke exposure: Yes Alcohol intake: current Drinks per week: 6 Alcohol use details: vodka Substance use: never Substance use type: does not use Living arrangements: with family Gender identity (if verbalized by the patient): Male Sexual Orientation (if Verbalized by the Patient): Straight or Heterosexual Spiritual care concerns: No Meds Home Medications and Allergies Home Medications Medication Instructions Recorded Confirmed Type fluticasone furoate 100 1 inh inhalation DAILY 07/07/21 05/12/22 History mcg-vilanterol 25 mcg/dose inhalation powder (Breo Ellipta) fluticasone propionate 50 2 spray intranasal DAILY 07/07/21 05/12/22 History mcg/actuation nasal spray,suspension albuterol sulfate 90 mcg/actuation 2 puff inhalation PRN PRN 05/12/22 05/12/22 History aerosol inhaler (ProAir HFA) shortness of breath or wheezing amiodarone 200 mg tablet 200 mg PO DAILY 05/12/22 05/12/22 History aspirin 81 mg tablet,delayed 81 mg PO DAILY 05/12/22 05/12/22 History release metoprolol tartrate 25 mg tablet 12.5 mg PO BID 05/12/22 05/13/22 History rivaroxaban 20 mg tablet (Xarelto) 20 mg PO DAILY 05/12/22 05/13/22 History rosuvastatin 5 mg tablet 5 mg PO DAILY 05/12/22 05/12/22 History Allergies Allergy/AdvReac Type Severity Reaction Status Date / Time tetracycline Allergy Mild Abdominal Verified 05/13/22 07:41 Pain Vital Signs Vital Signs - 24 hr 05/13/22 07:00 Temperature 36.8 C Pulse Rate 82 Respiratory Rate 15 Blood Pressure 156/83 H Pulse Oximetry 98 Oxygen Delivery Room Air Exam Const: General: comfortable and no acute distress HENMT: Mouth: Yes moist mucous membranes Eyes: General: appearance normal, both eyes and all related structures Neck: Neck: supple and no JVD Resp: Effort & Inspection: normal respiratory effort Auscultation: clear to auscultation bilaterally Cardio: Rhythm: abnormal rhythm irregularly irregular Heart sounds: no murmurs GI: GI Palp: Yes Soft to palpation and No Tenderness to palpation present (GI) Skin: General skin exam: normal color Neuro: Speech: normal speech Extrem: General: no edema Psych: Mental Status: mental status grossly normal H&P: Results Labs Labs: [facility] 05/13/22 07:28 Sodium 139 Potassium 4.2 Chloride 105 Carbon Dioxide 23 BUN 25 H Creatinine 1.60 H Glucose 112 H Calcium 8.5 Assessment and Plan Assessment and plan (1) Atrial fibrillation: Code(s): I48.91 - Unspecified atrial fibrillation Status: Acute Assessment and Plan: Proceed with cardioversion.
--- NOTE | 2022-05-13 08:33 | WPDMODSED ---
Moderate Sedation Note-Pt Data Patient Data Diagnosis: Atrial fibrillation Present Complaint: Atrial fibrillation Procedure to be performed/Plan: DCCV Allergies Allergy/AdvReac Type Severity Reaction Status Date / Time tetracycline Allergy Mild Abdominal Verified 05/13/22 07:41 Pain Home Medications Medication Instructions Recorded Confirmed Type fluticasone furoate 100 1 inh inhalation DAILY 07/07/21 05/12/22 History mcg-vilanterol 25 mcg/dose inhalation powder (Breo Ellipta) fluticasone propionate 50 2 spray intranasal DAILY 07/07/21 05/12/22 History mcg/actuation nasal spray,suspension albuterol sulfate 90 mcg/actuation 2 puff inhalation PRN PRN 05/12/22 05/12/22 History aerosol inhaler (ProAir HFA) shortness of breath or wheezing amiodarone 200 mg tablet 200 mg PO DAILY 05/12/22 05/12/22 History aspirin 81 mg tablet,delayed 81 mg PO DAILY 05/12/22 05/12/22 History release metoprolol tartrate 25 mg tablet 12.5 mg PO BID 05/12/22 05/13/22 History rivaroxaban 20 mg tablet (Xarelto) 20 mg PO DAILY 05/12/22 05/13/22 History rosuvastatin 5 mg tablet 5 mg PO DAILY 05/12/22 05/12/22 History Current Medications: Active Medications Sodium Chloride (Normal Saline Iv) 1,000 mls @ 30 mls/hr IV CONT .Q24H TAWANDA Sedation/Anesthesia: No previous sedation/anesthesia problems (including family history). [facility] Past Medical History Medical History Asthma Bleeding ulcer GERD (gastroesophageal reflux disease) Surgical History Surgical History History of sinus surgery Family History Family History Father Thyroid disorder Sibling Asthma Grandparent Cancer Cerebrovascular accident Social History Social History Smoking status: Never smoker Second hand tobacco smoke exposure: Yes Alcohol intake: current Drinks per week: 6 Alcohol use details: vodka Substance use: never Substance use type: does not use Living arrangements: with family Gender identity (if verbalized by the patient): Male Sexual Orientation (if Verbalized by the Patient): Straight or Heterosexual Spiritual care concerns: No Mod Sed Physical Exam Physical Exam Pre Procedural Exam: Normal: Appearance, Lungs, Neuro Exam, Abdomen, Extremities and Skin and Variation: Heart Rhythm (AFIB) Hours since solid foods: 12 Hours since liquid intake: 10 Mallampati Classification: class III Internal Medicine - PN: Obj Da Vital Signs Vital Signs: Vital Signs - 24 hr 05/13/22 07:00 Temperature 36.8 C Pulse Rate 82 Respiratory Rate 15 Blood Pressure 156/83 H Pulse Oximetry 98 Oxygen Delivery Room Air Intake/Output Intake/Output: Intake & Output 05/10/22 05/11/22 05/12/22 05/13/22 23:59 23:59 23:59 23:59 Intake Total 0 Output Total 0 Balance 0 Meds/Results Medications: Active Medications Generic Name Dose Route Start Last Admin Trade Name Freq PRN Reason Stop Dose Admin Sodium Chloride 1,000 mls @ 30 mls/hr 05/13/22 07:00 Normal Saline Iv IV CONT .Q24H TAWANDA Labs CBC & Chem 7: 05/13/22 07:28 Labs: Laboratory Results - last 24 hr 05/13/22 07:28 Sodium 139 Potassium 4.2 Chloride 105 Carbon Dioxide 23 Anion Gap 11 BUN 25 H Creatinine 1.60 H Estim Creat Clear Calc 41 Estimated GFR 43 L Glucose 112 H Calcium 8.5 Magnesium 2.2 ASA Classification/Sedation ASA Classification/Sedation ASA Class: II Emergent: No Risks: Risks, benefits and alternatives explained and patient/family accepted plan for sedation. Patient re-evaluated immediately prior to sedation.
--- NOTE | 2022-05-13 08:37 | P.PCNCVR_ITS ---
Cardioversion Cardioversion Date of procedure: 05/13/22 Procedure: Elective synchronized cardioversion Pre-op diagnosis: Atrial fibrillation Indications: Atrial fibrillation Description of procedure: Start time: 08:40 End time: 08:47 Patient placed in the supine position. Defibrillator pads placed in the anterior-posterior position. Time out was conducted. Sedation administered by cardiac cath technologist JOSHUA Junior. Once patient was appropriately sedated, synchronized cardioversion was performed with 200J. Patient administered 1 shock with roman catholic of sinus rhythm. Sedation: Versed 3mg Fentanyl 100mcg Findings: Successful synchronized cardioversion with 1 shock at 200J with resultant sinus bradycardia. Conclusion: Successful synchronized cardioversion with 1 shock at 200J with resultant sinus bradycardia.
--- NOTE | 2022-05-13 09:00 | ECG_ITS ---
Measurements Intervals [place] Rate: 45 P: 33 MS: 225 QRS: 6 QRSD: 88 T: 23 QT: 466 QTc: 404 Interpretive Statements SINUS BRADYCARDIA WITH FIRST DEGREE AV BLOCK ATRIAL PREMATURE COMPLEXES ABNORMAL ECG COMPARED TO ECG 05/13/2022 07:21:08 SINUS BRADYCARDIA NOW PRESENT FIRST DEGREE AV BLOCK NOW PRESENT Electronically Signed On 05-13-2022 8:56:36 CDT by Fei Shepherd D.O.
== END 2022-05-13 09:55 | disposition home or self-care (01) ==
PROVIDERS: PCP Family Medicine; Visit Provider Internal Medicine
PROC: 5A2204Z Restoration of Cardiac Rhythm, Single (ICD-10-PCS; 2022-05-13 08:30)
DX: I48.91 Unspecified atrial fibrillation (principal); J45.909 Unspecified asthma, uncomplicated; K21.9 Gastro-esophageal reflux disease without esophagitis; Z79.51 Long term (current) use of inhaled steroids; Z79.82 Long term (current) use of aspirin; Z79.01 Long term (current) use of anticoagulants
CPT/HCPCS: 36415; 80048; 83735; 92960; J2250; J3010; J7030

== ENCOUNTER 2023-11-18 21:45 | Observation (INO) | payer MEDICARE, SELFPAY ==
--- NOTE | ~2023-11-18 | XR_ITS ---
EXAMINATION: XR chest 2V DATE: 11/18/2023 22:08 INDICATION: Prior superior ventricular tachycardia presenting with palpitations TECHNIQUE: PA and lateral views of the chest were obtained. COMPARISON: Chest radiograph dated 07/16/2021 FINDINGS: The lungs are clear with no focal airspace opacities, pulmonary edema, pleural effusion or pneumothor ax. The cardiomediastinal silhouette is normal. Chronic mild anterior wedging of a a few mid thoracic vertebral bodies with severe midthoracic spondylosis. IMPRESSION: 1. No acute cardiopulmonary disease. Reviewed, dictated and finalized at location A.
[2023-11-18 21:45] VITALS: BP 142/93; PULSE 92; RESP 15; TEMP 36.7; O2SAT 96
--- NOTE | 2023-11-18 21:50 | ECG_ITS ---
SEE SCANNED COPY FOR CONFIRMED REPORT MTDD
[2023-11-18 21:53] VITALS: PULSE 93
[2023-11-18 22:40] LABS: Basophils Absolute Auto 0.1 K/mm3 (0.0-0.1); Basophils Percent Auto 0.6 % (0.2-1.2); Eosinophils Absolute Auto 0.2 K/mm3 (0-0.3); Eosinophils Percent Auto 1.8 % (0-4.4); Hematocrit 42.9 % (42.0-52.0); Hemoglobin 14.5 g/dL (14.0-18.0); Immature Granulocyte Absolute 0.06 K/mm3 (0.00-0.031); Immature Granulocyte Percent A 0.5 % (0-0.5); Lymphocytes Absolute Auto 1.61 K/mm3 (0.9-3.2); Lymphocytes Percent Auto 12.4 % (18.3-44.2); Mean Corpuscular HGB Conc 33.8 g/dl (32-36); Mean Corpuscular Hemoglobin 30.6 pg (26-34); Mean Corpuscular Volume 90.5 fl (80-100); Mean Platelet Volume 9.6 fl (7.4-10.4); Monocytes Absolute Auto 0.9 K/mm3 (0.1-0.6); Neutrophils Absolute Auto 10.1 K/mm3 (1.3-6.7); Neutrophils Percent Auto 77.7 % (45.5-73.1); Platelet Count Result 293 k/mm3 (150-375); Red Blood Count 4.74 M/mm3 (4.6-6.20); Red Cell Distribution Width 12.7 % (11.5-14.5)
[2023-11-18 22:50] LABS: Alanine Aminotransferase 30 U/L (6-50); Albumin Level 4.6 g/dL (3.5-5.1); Alkaline Phosphatase 38 U/L (38-126); Anion Gap 11 mmol/L (4-12); Aspartate Amino Transferase 29 U/L (17-59); Bilirubin,Total 0.7 mg/dL (0.2-1.3); Blood Urea Nitrogen 23 mg/dL (9-20); Calcium 9.4 mg/dL (8.4-10.2); Carbon Dioxide 19 mmol/L (22-30); Chloride 106 mmol/L (98-107); Estimated CRCL calculation 48 ml/min; Estimated Glomerular Filt Rate 50; Glucose 106 mg/dL (65-110); Lipase 181 U/L (23-300); Potassium 4.2 mmol/L (3.4-5.0); Sodium 136 mmol/L (137-145)
--- NOTE | 2023-11-18 22:52 | ED.ARRPALP ---
HPI - Arrhythmia/Palpitations General Chief Complaint: Arrhythmia/Palpitations Stated Complaint: SELF CONVERTED SVT Time Seen by Provider: 11/18/23 22:22 Source: patient Mode of arrival: ambulatory Limitations: no limitations History of Present Illness HPI narrative: 73-year-old male presenting for SVT. History of SVT and AFib RVR in the past. Was coughing and when he finished coughing started feeling some palpitations. Called 911 after his walk study was made having heart rate of 170. Converted while in EMS on his own and then went back into SVT. He EMS gave 6 mg adenosine which converted him again. He never had any symptoms apart from palpitations. Related Data Home Medications Medication Instructions Recorded Confirmed fluticasone furoate 100 1 inh inhalation DAILY 07/07/21 05/12/22 mcg-vilanterol 25 mcg/dose inhalation powder (Breo Ellipta) fluticasone propionate 50 2 spray intranasal DAILY 07/07/21 05/12/22 mcg/actuation nasal spray,suspension albuterol sulfate 90 mcg/actuation 2 puff inhalation PRN PRN 05/12/22 05/12/22 aerosol inhaler (ProAir HFA) shortness of breath or wheezing amiodarone 200 mg tablet 200 mg PO DAILY 05/12/22 05/12/22 aspirin 81 mg tablet,delayed 81 mg PO DAILY 05/12/22 05/12/22 release metoprolol tartrate 25 mg tablet 12.5 mg PO BID 05/12/22 05/13/22 rivaroxaban 20 mg tablet (Xarelto) 20 mg PO DAILY 05/12/22 05/13/22 rosuvastatin 5 mg tablet 5 mg PO DAILY 05/12/22 05/12/22 Allergies Allergy/AdvReac Type Severity Reaction Status Date / Time tetracycline Allergy Mild Abdominal Verified 05/13/22 07:41 Pain Review of Systems Review of Systems: All systems reviewed & are unremarkable except as noted in HPI and below PMFSH Past Medical History Medical History Asthma Bleeding ulcer GERD (gastroesophageal reflux disease) Surgical History Surgical History History of sinus surgery Family History Family History Father Thyroid disorder Sibling Asthma Grandparent Cancer Cerebrovascular accident Social History Social History Smoking status: Never smoker Second hand tobacco smoke exposure: Yes Alcohol intake: current Drinks per week: 6 Alcohol use details: vodka Substance use: never Substance use type: does not use Living arrangements: with family Occupation/Education: retired Gender identity (if verbalized by the patient): Male Sexual Orientation (if Verbalized by the Patient): Straight or Heterosexual Spiritual care concerns: No Exam Narrative: Constitutional: Generally well appearing, no acute distress Head: Atraumatic, no deformities. Eyes: Pupils equal, round, and reactive to light. Neck: Supple, no tracheal deviation, no JVD. ENMT: Mucous membranes moist Cardiovascular: S1, S2 auscultated. No murmurs, rubs, or gallops. No S3/S4. Normal Distal pulses. No peripheral edema. Respiratory: Lung sounds equal. No wheezes, rales, or rhonchi. Gastrointestinal: Abdomen was soft and non-tender. Non-distended. No rebound or guarding. Genitourinary: Deferred Musculoskeletal: Normal muscle tone and bulk. No obvious deformities or tenderness over extremities. Skin: No rashes. Neurological: Strength 5/5 in extremities. Cranial nerves I-XII grossly intact. Distal sensation intact. Mental Status: Awake, alert and oriented x3. Follows commands Course Vital Signs Vital signs: Vital Signs Temperature 36.7 C 11/18/23 21:45 Pulse Rate 92 11/18/23 21:45 Respiratory Rate 15 11/18/23 21:45 Blood Pressure 142/93 H 11/18/23 21:45 Pulse Oximetry 96 11/18/23 21:45 Oxygen Delivery Room Air 11/18/23 21:45 Temperature 36.7 C 11/18/23 21:45 Pulse Rate 58 L 11/19/23 02:01 Respiratory Rate 16
[2023-11-18 22:56] LABS: INR 3.8; Prothrombin Time 40.8 Seconds (11.1-14.7)
[2023-11-18 22:57] LABS: Partial Thromboplastin Time 57.1 Seconds (22.3-36.8)
[2023-11-18 22:58] VITALS: O2SAT 100
[2023-11-18] MEDS: SODIUM CHLORIDE 0.9% IV 1,000 ML 999 ML IV CONT (23:00)
[2023-11-18 23:02] LABS: Troponin I < 0.012 ng/mL (0.000-0.034)
[2023-11-19] VITALS (12 sets, daily range): BP systolic 140–168; BP diastolic 63–84; PULSE 42–62; RESP 13–18; TEMP 36–36.7; O2SAT 97–99
--- NOTE | 2023-11-19 05:13 | ADMGEN ---
This patient, Bill Muir, was admitted to IMU Room 203-01. Patient/family oriented to hospital policies and general routines including ID bracelet, bed and alarms, visiting hours, pain management, procedures, bathroom and other care routines, personal items, smoking policy, room service/diet, and visiting hours. Information on how to activate the Rapid Response Team has been discussed. Patient/Family are encouraged to report perceived risks to care and to ask questions if they do not understand what they are told or what they should do.
[2023-11-19 05:28] LABS: Troponin I 0.049 ng/mL (0.000-0.034)
[2023-11-19] MEDS: SODIUM CHLORIDE 0.9% IV 1,000 ML 125 ML IV CONT (07:00)
--- NOTE | 2023-11-19 08:38 | PM.IMHP ---
H&P: HPI History of Present Illness Date/Time: 11/19/23 08:38 Chief Complaint: Palpitations Narrative: 73yo male with asthma, SVT and AFib here for palpitations. Patient called EMS in May 2021 for palpitations and found to be in SVT treated with adenosine and converted. He was started on metoprolol as needed. He was seen by cardiology August 2021 for office visit and found to have SVT with a heart rate of 170 that converted in the clinic. Echo 08/26/21 showing normal LV size and systolic fxn with mild concentric LVH, EF 56% and grade I diastolic dysfunction. Mild pulm HTN and mild valvular disease. The aortic root moderately dilated. He was started on scheduled metoprolol. Cardiac 7 day monitoring December 2021 showed no AFib but on return visit March 2022, noted to be in AFib and was loaded with Amiodarone and started on Xarelto. ultimately underwent successful cardioversion May 2022. At some point, he was changed from Amio to Multaq Since cardioversion, patient has had a few short episodes of palpitations but overall well controlled. His resting heart rate mostly in the 50's. No limitation in his activity level. He had just finished playing golf and sat down when he he felt fluttering and racing heart. No CP or SOB. No jaw, neck or arm pain. He has not had a stress test or LHC. Recently had a sinus infection treated with Amoxicillin which he completed about 4-5 days ago. He also used Flonase but no other OTC medications. No other new medications. He has been compliant with his home medications. No fevers, chills, vision changes, hearing changes, nausea, vomiting, diarrhea, abdominal pain, back pain, dysuria, heamturia, melena or hematochezia. No alcohol use or reported excessive caffeine use. He has asthma but has not required Albuterol. The symptoms began after coughing. He contacted EMS. He sponataneously converted to sinus rhythm but had recurrence in the ambulance requiring adenosine once with conversion back to normal sinus. Patient brought to the ED for evaluation. No EKG to review from EMS In the ED, he was hemodynamically stable. WBC 13K, sodium 136, BUN 23, bicarb 19 (AG 11) and Cr 1.4. Troponin elevated to 0.049PT 41 with INR 3.8 and PTT 57. EKG here was read as normal. CXR clear. He was given IV fluids and admitted for further care. Review of Systems Review of Systems: All systems reviewed & are unremarkable except as noted in HPI and below [facility] Past Medical History Medical History (Updated 11/19/23 @ 09:20 by Helder Vela MD) Ascending aortic aneurysm MRA September 2021 showing ascending Ao aneurysm at 4.5cm at the root Asthma Atrial fibrillation Bleeding ulcer Duodenal ulcer 2008 CKD (chronic kidney disease) GERD (gastroesophageal reflux disease) Paroxysmal SVT (supraventricular tachycardia) Surgical History Surgical History History of sinus surgery Family History Family History Father Thyroid disorder Sibling Asthma Grandparent Cancer Cerebrovascular accident Social History Social History (Updated 11/19/23 @ 09:21 by Helder Vela MD) Social History: Patient lives at home with his and grandson. Lifelong nonsmoker. Denies alcohol or drug use. No history of drug use. They have a dog. He is full code. He nominates his to be the individual who would make medical decisions for him if he is unable. Smoking status: Never smoker Second hand tobacco smoke exposure: Yes Alcohol intake: never Drinks per week: 6 Alcohol use details: vodka Substance use: never Substance use type: does not use Do You Feel Safe in your Home?: Yes Lack of Transportation: No Lack of Food: Never True Current Housing: I Have Housing Concerned About Future Housing: No Difficulty Paying Gas/Electric Bills: No Difficulty Paying for Meds: No Currently Unemployed: No
[2023-11-19] MEDS: ROSUVASTATIN 5 MG TABLET PO (08:57)
[2023-11-19 09:57] LABS: Basophils Absolute Auto 0.1 K/mm3 (0.0-0.1); Basophils Percent Auto 1.1 % (0.2-1.2); Eosinophils Absolute Auto 0.3 K/mm3 (0-0.3); Eosinophils Percent Auto 4.3 % (0-4.4); Hematocrit 41.9 % (42.0-52.0); Hemoglobin 13.7 g/dL (14.0-18.0); Immature Granulocyte Absolute 0.04 K/mm3 (0.00-0.031); Immature Granulocyte Percent A 0.6 % (0-0.5); Lymphocytes Absolute Auto 1.48 K/mm3 (0.9-3.2); Lymphocytes Percent Auto 20.5 % (18.3-44.2); Mean Corpuscular HGB Conc 32.7 g/dl (32-36); Mean Corpuscular Hemoglobin 30.2 pg (26-34); Mean Corpuscular Volume 92.3 fl (80-100); Mean Platelet Volume 9.7 fl (7.4-10.4); Monocytes Absolute Auto 0.7 K/mm3 (0.1-0.6); Monocytes Percent Auto 9.6 % (2.6-8.5); Neutrophils Absolute Auto 4.6 K/mm3 (1.3-6.7); Neutrophils Percent Auto 63.9 % (45.5-73.1); Platelet Count Result 277 k/mm3 (150-375); Red Blood Count 4.54 M/mm3 (4.6-6.20); Red Cell Distribution Width 13.1 % (11.5-14.5); White Blood Count 7.2 K/mm3 (4.5-10.0)
[2023-11-19 10:08] LABS: Albumin Level 4.2 g/dL (3.5-5.1); Anion Gap 7 mmol/L (4-12); Blood Urea Nitrogen 18 mg/dL (9-20); Calcium 9.1 mg/dL (8.4-10.2); Carbon Dioxide 24 mmol/L (22-30); Chloride 108 mmol/L (98-107); Estimated CRCL calculation 55 ml/min; Estimated Glomerular Filt Rate 60; Glucose 94 mg/dL (65-110); INR 2.1; Phosphorus 4.1 mg/dL (2.5-4.5); Prothrombin Time 24.7 Seconds (11.1-14.7); Sodium 139 mmol/L (137-145)
--- NOTE | 2023-11-19 10:42 | PM.CNCAR ---
Assessment and Plan Assessment and plan (1) Paroxysmal SVT (supraventricular tachycardia): Code(s): I47.10 - Supraventricular tachycardia, unspecified Status: Acute Plan This is a 73-year-old man who interestingly appears to have 2 different atrial arrhythmias both a history of paroxysmal AFib as well as supraventricular tachycardia. He had the onset of what appears to have been an episode of SVT yesterday and he was unable to terminate with vagal maneuvers. This occurred despite ongoing treatment with dronedarone. He has been in sinus rhythm and asymptomatic since being converted with IV adenosine yesterday in the ambulance. He has no other specific cardiac history or diagnosis any is known to have good left ventricular function and no ischemic disease. I am going to recommend transitioning him from turned around to flecainide which may be more effective at treating both a SVT as well as his atrial fib. He will be continued on Xarelto. He has follow-up appointment with Dr. Medley next month and we will assess his response to a flecainide treatment at that time. I spoke to the patient at some length about the potential for ablation of his SVT if medical therapy proves to be ineffective at controlling this arrhythmia. Jason Stallworth MD [facility] History of Present Illness History of Present Illness Consult date/time: 11/19/23 10:42 Reason For Visit: SVT Narrative: This is a very pleasant 73-year-old man I am seeing this morning at the request of the hospitalist for evaluation and management of atrial arrhythmias. The patient is unknown to me but is known to my partner Dr. Medley and has the diagnosis of 2 arrhythmias both supraventricular tachycardia as well as atrial fibrillation. He will this seen in the past in consultation for tachycardia/palpitations which responded to adenosine. He was hospitalized and seen in the clinic after this. He was placed on medical therapy in the form of amiodarone and was clinically doing well. In follow-up after he was established with our practice he was transition from amiodarone to Multaq in hopes of avoiding long-term amiodarone exposure in the toxicity associated with that. He did have an episode of atrial fibrillation which required treatment in May of 2022. At that time he was found to be in persistent atrial fibrillation with palpitations and underwent DC cardioversion in May of [address] Freire. He was last seen in our office in December of last year and was doing well at that time. Since then in this admission he has had a several episodes of brief self-limited palpitations but nothing which sustained. He was on the golf course yesterday playing golf with a group of friends. His round of golf had concluded in the where the clubhouse looking at their score cards and he developed a sudden onset of tachycardia and palpitations. He typically can terminate this with vagal maneuver such as a breath-holding and bearing down but he was unable to terminate the tachycardia and so he was brought to the emergency room. Apparently while EMS was on the scene he was found to be in SVT with a heart rate of about 170 and he self converted to sinus rhythm. While he was in the ambulance headed to the hospital he had another recurrence of SVT which was terminated with a 6 mg injection of IV adenosine. He has been in sinus rhythm since arrival here and has no other complaints. The patient is not known to have any ischemic heart disease nor any structural heart disease on echo. He does have a history of a mildly enlarged ascending aorta. His chart also indicates that while in sinus rhythm he tends to be bradycardic with heart rates between 40 and 50 beats per minute. Unfortunately there are no ECGs or rhythm strips on the chart of yesterday's arrhythmias for my personal review. Review of Systems Constitutional: Constitutional: Reports no additional constitutional complaints Eyes: Eyes: Reports no a
--- NOTE | 2023-11-19 11:58 | PM.DS ---
DS: Admitting Diagnosis Discharge Date 11/19/23 Admitting Diagnosis Palpitations DS: Discharge Diagnosis Discharge Diagnosis (1) Paroxysmal SVT (supraventricular tachycardia): Code(s): I47.10 - Supraventricular tachycardia, unspecified Status: Acute (2) Elevated troponin: Code(s): R79.89 - Other specified abnormal findings of blood chemistry Status: Acute (3) Elevated INR: Code(s): R79.1 - Abnormal coagulation profile Status: Acute (4) Metabolic acidosis: Code(s): E87.20 - Acidosis, unspecified Status: Acute (5) CKD (chronic kidney disease): Code(s): N18.9 - Chronic kidney disease, unspecified Status: Acute (6) Atrial fibrillation: Code(s): I48.91 - Unspecified atrial fibrillation Status: Acute (7) Asthma: Qualifiers: Asthma severity: unspecified severity Asthma persistence: unspecified Asthma complication type: unspecified Qualified Code(s): J45.909 - Unspecified asthma, uncomplicated Code(s): J45.909 - Unspecified asthma, uncomplicated Status: Acute DS: Summary Hospital Course Reason for hospitalization: 73yo male with asthma, SVT and AFib here for palpitations.?Please see H&P for details. Hospital Course: Patient spontaneously converted to sinus rhythm but had recurrence in the ambulance requiring adenosine x1 with conversion back to normal sinus. Patient brought to the ED for evaluation. No EKG to review from EMS. In the ED, he was hemodynamically stable. WBC 13K, sodium 136, BUN 23, bicarb 19 (AG 11) and Cr 1.4. Troponin elevated to 0.049. PT 41 with INR 3.8 and PTT 57. EKG here was read as normal. CXR clear. He was given IV fluids and admitted for further care. Cardiology consulted. Noted to have resting bradycardia with HR in the 40's. Repeat INR better at 2.1. Elevated INR possibly related to increased Xarelto effect from the interaction with the Multaq. TSH normal. WBC normalized and felt Cardiology changed him from Multaq to flecainide and felt he could be discharged home safely. Patient overall did well and was able to be discharged home on 11/19/23. Status at Discharge Cognitive/behavioral status at discharge: stable Time Spent with Patient Time attestation: Total time spent providing and/or coordinating discharge services: 36 minutes Time spent: Greater than 30 minutes Exam Narrative: AF 97.6 146/63 42 17 98% ra Gen - well appearing male in no acute respiratory distress who is nontoxic-appearing lying semi recumbent in bed HEENT - normocephalic. Atraumatic. Pupils equal round and reactive. Extraocular motions intact. Sclera clear and anicteric. Nares patent. Oropharynx was clear. No oral lesions. Moist mucous membranes. Tongue was midline. Palate brock symmetrically. No facial asymmetry. Neck - neck was supple. No dominant adenopathy, thyromegaly or masses. 2+ carotid upstrokes without bruits. Chest - lungs are clear to auscultation bilaterally. No wheezes or crackles. CV - bradycardic and regular. S1-S2. No murmurs gallops or rubs. Abd - abdomen was soft. Nontender. Nondistended. Positive bowel sounds. No organomegaly or masses. Ext - no clubbing, cyanosis or edema. 2+ DP pulses bilaterally. Neuro - patient is alert and oriented x4. Strength is 5/5 in both upper and lower extremities. Cranial nerves 2-12 are intact. Speech is clear. Psych - normal mood and affect. Patient is pleasant and cooperative. Skin - warm and dry. No rashes noted. DS: Data Data Completed and Pending Labs on day of discharge: Labs from last 24 hours 11/19/23 11/19/23 11/19/23 09:50 04:55 01:33 WBC 7.2 RBC 4.54 L Hgb 13.7 L Hct 41.9 L MCV 92.3 MCH 30.2 MCHC 32.7 RDW 13.1 Plt Count 277 MPV 9.7 Immature Gran % (Auto) 0.6 H Neut % (Auto) 63.9 Lymph % (Auto) 20.5 [place] % (Auto) 9.6 H Eos % (Auto) 4.3 Baso % (Auto) 1.1 Lymph #
[2023-11-19] MEDS: FLECAINIDE ACETATE 100 MG TABLET PO (12:05)
== END 2023-11-19 13:55 | disposition home or self-care (01) ==
LOC: ANHED 11-19 02:55 → ANHIMU 11-19 04:51
PROVIDERS: Admitting Provider Internal Medicine; Emergency Provider Emergency Medicine; PCP Family Medicine; Visit Provider Internal Medicine
DX: I47.10 Supraventricular tachycardia, unspecified (principal); R79.89 Other specified abnormal findings of blood chemistry; R79.1 Abnormal coagulation profile; E87.20 Acidosis, unspecified; R00.1 Bradycardia, unspecified; I44.0 Atrioventricular block, first degree; I71.21 Aneurysm of the ascending aorta, without rupture; I48.0 Paroxysmal atrial fibrillation; N18.9 Chronic kidney disease, unspecified; J45.909 Unspecified asthma, uncomplicated; K21.9 Gastro-esophageal reflux disease without esophagitis; Z79.51 Long term (current) use of inhaled steroids; Z79.82 Long term (current) use of aspirin; Z79.01 Long term (current) use of anticoagulants
CPT/HCPCS: 36415; 71046; 80053; 80069; 83605; 83690; 84443; 84484; 85025; 85610; 85730; 93005; 96360; 96361; 99285; A9270; G0378; J7030

== ENCOUNTER 2025-06-11 00:48 | Emergency (ER) | payer MEDICARE, SELFPAY ==
[2025-06-11] VITALS (9 sets, daily range): BP systolic 151–187; BP diastolic 62–104; PULSE 55–73; RESP 11–19; TEMP 36.3–36.9; O2SAT 94–100
--- NOTE | ~2025-06-11 | XR_ITS ---
Examination: XR chest 1V Clinical History: fall Comparison: 11/18/2023 Technique: Portable AP Findings: Heart size normal. Lungs clear. No acute bony abnormality. IMPRESSION: 1. No acute cardiopulmonary findings given portable technique. Reviewed, dictated and finalized at location R. BIOLOGY
--- NOTE | ~2025-06-11 | XR_ITS ---
Examination: XR hip LT 2V w AP pelvis Clinical History: pain s/p fall Comparison: None Technique: AP pelvis, 2 views left hip Findings/impression: 1. Subcapital fracture left femur. 2. No pelvic fracture identified. Reviewed, dictated and finalized at location R. [facility]
--- NOTE | ~2025-06-11 | CT_ITS ---
EXAMINATION: CT brain wo con DATE: 06/11/2025 01:23 INDICATION: Fall. TECHNIQUE: Computed tomography (CT) of the head was performed without intravenous contrast. The mA was adjusted according to patient size. Iterative reconstruction technique was employed. The dose-length product was 681.00 mGy-cm. COMPARISON: None FINDINGS: There are scattered areas of low attenuation in the cerebral white matter. 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 There is no intracranial hemorrhage, acute infarction, or abnormal intracranial mass lesion. The ventricles are normal in size. There is mild mucosal thickening in the paranasal sinuses. There are surgical changes of the paranasal sinuses. The mastoid air cells are normal. The orbits are normal. IMPRESSION: 1. 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 2. Mild nonspecific cerebral white matter disease, which likely represents chronic small vessel ischemic disease. Reviewed, dictated and finalized at location E. RVISOR EVAPORATOR IMPRESSION: 1. 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 2. Mild nonspecific cerebral white matter disease, which likely represents labor expediter jeimy small vessel ischemic disease.
--- NOTE | ~2025-06-11 | CT_ITS ---
CT pelvis without contrast CLINICAL HISTORY: Left hip pain after fall Technique: Images through pelvis Sagittal and coronal reformats. No contrast CT images acquired with automatic exposure control for dose reduction DLP: 197 mGy-cm Comparison: None Findings: Subcapital fracture left femur. No other fracture noted. Visualized pelvic viscera without acute abnormality. Diverticulosis. IMPRESSION: 1. Subcapital fracture left femur. Reviewed, dictated and finalized at location R. INFRASTRUCTURE ENGINEER
--- NOTE | 2025-06-11 01:02 | ECG_ITS ---
Test Date: 2025-06-11 01:02:07 Measurements Intervals [place] Rate: 53 P: 87 ID: [id number] QRS: -8 QRSD: 119 T: 60 QT: 473 QTc: 445 Interpretive Statements SINUS BRADYCARDIA WITH FIRST DEGREE AV BLOCK INTRAVENTRICULAR CONDUCTION DELAY CANNOT R/O SEPTAL INFARCT, AGE INDETERMINATE BASELINE ARTIFACT- I, II, AVR ABNORMAL ECG No previous ECG available for comparison Electronically Signed On 06-11-2025 05:55:31 [employer] by Fei Shepherd D.O.
--- OUTSIDE RECORDS SUMMARY | 2025-06-11 01:28 | XMS_ITS | Encounter Summary ---
Author Organization [facility] Healthcare Address [address] [place] [id number] Care Team Providers Care [employer] Name Role Phone Joshua Vergara DO Primary Care Provider [phone] Encounter Details Date Type Department Care Team (Late st Contact Info) Description 06/04/2025 Results Follow-Up [facility] [address] [place] [id number] Gloria Corbin NP [address] 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
[2025-06-11 01:50] LABS: Hematocrit 44.6 % (42.0-52.0); Hemoglobin 14.8 g/dL (14.0-18.0); Immature Granulocyte Percent A 0.7 % (0-0.5); Lymphocytes Absolute Auto 1.23 K/mm3 (0.9-3.2); Mean Corpuscular HGB Conc 33.2 g/dl (32-36); Mean Corpuscular Hemoglobin 30.4 pg (26-34); Mean Corpuscular Volume 91.6 fl (80-100); Nucleated Red Blood Cells Absolute Auto 0.000 K/mm3 (0.0-0.012); Nucleated Red Blood Cells Perc 0.0 % (0.0-0.2); Platelet Count Result 254 k/mm3 (150-375); Red Blood Count 4.87 M/mm3 (4.6-6.20); White Blood Count 12.3 K/mm3 (4.5-10.0)
[2025-06-11 02:02] LABS: Alanine Aminotransferase 23 U/L (6-50); Albumin Level 4.3 g/dL (3.5-5.1); Alkaline Phosphatase 40 U/L (38-126); Anion Gap 5 mmol/L (4-12); Aspartate Amino Transferase 26 U/L (17-59); Bilirubin,Total 0.4 mg/dL (0.2-1.3); Blood Urea Nitrogen 27 mg/dL (9-20); Calcium 9.4 mg/dL (8.4-10.2); Carbon Dioxide 29 mmol/L (22-30); Chloride 104 mmol/L (98-107); Estimated CRCL calculation 40 ml/min; Estimated Glomerular Filt Rate 42; Glucose 119 mg/dL (65-110); Potassium 4.2 mmol/L (3.4-5.0); Sodium 138 mmol/L (137-145); Total Protein 7.3 g/dL (6.3-8.2)
--- NOTE | 2025-06-11 03:27 | ED_ITS ---
HPI - General Adult General Chief complaint: Extremity Injury, Lower Stated complaint: L hip pain after fall Time Seen by Provider: 06/11/25 00:54 History of Present Illness HPI narrative: Patient is a 75-year-old gentleman presents emergency department with chief complaint of fall. The patient reports he was walking with his crutches and tripped and landed on his left hip patient reports pain in the left hip Related Data Home Medications ?Medication ?Instructions ?Recorded ?Confirmed ?Last Taken ?Type fluticasone furoate 100 1 inh inhalation DAILY 07/0711/19/23 11/18/23 History mcg-vilanterol 25 mcg/dose inhalation powder (Breo Ellipta) rivaroxaban 20 mg tablet (Xarelto) 20 mg PO DAILY 08/0211/19/23 11/18/23 History rosuvastatin 5 mg tablet 5 mg PO DAILY 05/12/2211/1811/18/23 History Allergies Allergy/AdvReac Type Severity Reaction Status Date / Time tetracycline Allergy Mild Abdominal Verified 05/13/22 07:41 Pain Review of Systems 2 Review of Systems: A 10 system review of systems was completed on the patient and is negative except for what is stated in the HPI. Nursing and ancillary documentation was reviewed. [facility] Past Medical History Medical History CKD (chronic kidney disease) Ascending aortic aneurysm MRA September 2021 showing ascending Ao aneurysm at 4.5cm at the root Paroxysmal SVT (supraventricular tachycardia) Atrial fibrillation GERD (gastroesophageal reflux disease) Asthma Bleeding ulcer Duodenal ulcer 2008 Surgical History Surgical History History of sinus surgery Family History Family History Father Thyroid disorder Sibling Asthma Grandparent Cancer Cerebrovascular accident Social History Social History Social History: Patient lives at home with his and grandson. Lifelong nonsmoker. Denies alcohol or drug use. No history of drug use. They have a dog. He is full code. He nominates his to be the individual who would make medical decisions for him if he is unable. Smoking status: Never smoker Second hand tobacco smoke exposure: Yes Alcohol intake: never Drinks per week: 6 Alcohol use details: vodka Substance use: never Substance use type: does not use Lack of Transportation: No Lack of Food: Never True Current Housing: I Have Housing Concerned About Future Housing: No Difficulty Paying Gas/Electric Bills: No Difficulty Paying for Meds: No Currently Unemployed: No Education: Trade/Vocational Certificate Difficulty w/ Childcare or Family Care: No Living arrangements: with family Occupation/Education: retired Gender identity (if verbalized by the patient): Male Sexual Orientation (if Verbalized by the Patient): Straight or Heterosexual Spiritual care concerns: No Exam 2 Narrative: GENERAL: Well-appearing, well-nourished, and in no acute distress. HEAD: Normocephalic, atraumatic. EYES: PERRLA and EOMI. ENT: Nares clear, no rhinorrhea or epistaxis. Mucous membranes moist. NECK: Supple. CHEST: Clear to auscultation. No respiratory distress. HEART: Regular rate and rhythm. No murmur heard. Normal peripheral pulses. ABDOMEN: Soft, nontender, nondistended, normal active bowel sounds. EXTREMITIES: Normal range of motion limited in the left hip and tenderness to palpation of the left hip. No edema. SKIN: Warm, dry, no rash. NEURO: No focal deficits. Alert and oriented x3. PSYCH: Normal mood and affect. Course Vital Signs Vital signs: Vital Signs Temperature 36.3 C L 06/11/25 00:53 Pulse Rate 73 06/11/25 00:53 Respiratory Rate 17 06/11/25 00:53 Blood Pressure 187/100 H 06/11/25 00:53 Pulse Oximetry 98 06/11/25 00:53 Temperature 36.3 C L 06/11/25 00:53 Pulse Rate 73 06/11/25 00:53 Respiratory Rate 17 06/11/25 00:53 Blood Pressure 187/100 H 06/11/25 00:53 Pulse Oximetry 98 06/11/25 00:53 Medical Decision Making [facility] Narrative Medical decision making narrative: Differential diagnosis includes hip fracture, pelvic fracture, The patient is on anticoagulants CT head was obtained due the patient being on anticoagulants in the patient is currently GCS 15 Plain film x-rays were obtained that did show evidence of femoral neck fracture helical imaging was obtained that showed no evidence of pelvic fracture but did redemonstrate the of femoral neck fracture. The case was discussed with orthopedics on-call doctor Rossy who did review the images and reviewed the patient's past medical history and felt though the patient was complicated and would benefit from being in a facility with orthopedic trauma and also had advanced Cardiology capabilities. Due to this the case was discussed with [facility] transfer center was accepted by Dr. Vásquez to the emergency department Vital Signs Vital Signs: Vital Signs Temperature 36.3 C L 06/11/25 00:53 Pulse Rate 73 06/11/25 00:53 Respiratory Rate 17 06/11/25 00:53 Blood Pressure 187/100 H 06/11/25 00:53 Pulse Oximetry 98 06/11/25 00:53 Temperature 36.3 C L 06/11/25 00:53 Pulse Rate 73 06/11/25 00:53 Respiratory Rate 17 06/11/25 00:53 Blood Pressure 187/100 H 06/11/25 00:53 Pulse Oximetry 98 06/11/25 00:53 Lab Data 06/11/25 01:43 06/11/25 01:43 Labs: Lab Results 06/11/25 Range/Units 01:43 WBC 12.3 H (4.5-10.0) K/mm3 RBC 4.87 (4.6-6.20) M/mm3 Hgb 14.8 (14.0-18.0) g/dL Hct 44.6 (42.0-52.0) % MCV 91.6 (80-100) fl MCH 30.4 (26-34) pg MCHC 33.2 (32-36) g/dl RDW 12.7 (11.5-14.5) % Plt Count 254 (150-375) k/mm3 MPV 9.7 (7.4-10.4) fl Immature Gran % (Auto) 0.7 H (0-0.5) % Neut % (Auto) 79.8 H (45.5-73.1) % Lymph % (Auto) 10.0 L (18.3-44.2) % [place] % (Auto) 7.2 (2.6-8.5) % Eos % (Auto) 1.6 (0-4.4) % Baso % (Auto) 0.7 (0.2-1.2) % Lymph # (Auto) 1.23 (0.9-3.2) K/mm3 [place] # (Auto) 0.9 H (0.1-0.6) K/mm3 Eos # (Auto) 0.2 (0-0.3) K/mm3 Baso # (Auto) 0.1 (0.0-0.1) K/mm3 Abs Immat Gran (auto) 0.09 H (0.00-0.031) K/mm3 Absolute Neuts (auto) 9.8 H (1.3-6.7) K/mm3 Absolute Nucleated RBC 0.000 (0.0-0.012) K/mm3 Nucleated RBC % 0.0 (0.0-0.2) % Sodium 138 (137-145) mmol/L Potassium 4.2 (3.4-5.0) mmol/L Chloride 104 (98-107) mmol/L Carbon Dioxide 29 (22-30) mmol/L Anion Gap 5 (4-12) mmol/L BUN 27 H (9-20) mg/dL Creatinine 1.62 H (0.7-1.3) mg/dL Estim Creat Clear Calc 40 ml/min Estimated GFR 42 L (59 - ) Glucose 119 H (65-110) mg/dL Calcium 9.4 (8.4-10.2) mg/dL Total Bilirubin 0.4 (0.2-1.3) mg/dL AST 26 (17-59) U/L ALT 23 (6-50) U/L Alkaline Phosphatase 40 (38-126) U/L Total Protein 7.3 (6.3-8.2) g/dL Albumin 4.3 (3.5-5.1) g/dL Discharge Plan Discharge Clinical Impression: Femoral neck fracture Patient Disposition: Acute Care Hospital Condition: Stable Patient Language: Israeli Prescriptions: No Action Breo Ellipta 100-25 mcg/dose blister with device 1 inh inhalation DAILY rosuvastatin 5 mg tablet 5 mg PO DAILY Xarelto 20 mg tablet 20 mg PO DAILY flecainide 100 mg Tablet 100 mg PO Q12HR Qty: 60 1RF Follow-up/Referrals: UNKNOWN,DOCTOR [Primary Care Provider] Time of Disposition: 03:39
--- NOTE | 2025-06-11 03:30 | PC.NURSE ---
Pt refused rodriguez catheter stating Ana can place it when I get there. Will continue to monitor.
--- NOTE | 2025-06-11 07:11 | PC.NURSE ---
Bedside shift report at [id number]
[2025-06-11] MEDS: MORPHINE SULFATE (*CRX) 4 MG/ML INJ IV PUSH (08:31)
== END 2025-06-11 09:20 | disposition short-term general hospital (02) ==
PROVIDERS: Emergency Provider Emergency Medicine
DX: S72.012A Unspecified intracapsular fracture of left femur, initial encounter for closed fracture (principal); R94.31 Abnormal electrocardiogram [ECG] [EKG]; N18.9 Chronic kidney disease, unspecified; K21.9 Gastro-esophageal reflux disease without esophagitis; J45.909 Unspecified asthma, uncomplicated; W01.0XXA Fall on same level from slipping, tripping and stumbling without subsequent striking against object, initial encounter
CPT/HCPCS: 36415; 70450; 71045; 72192; 73502; 80053; 85025; 93005; 96374; 99285; J2270

== ENCOUNTER 2025-06-20 08:11 | Emergency (ER) | payer MEDICARE, SELFPAY ==
[2025-06-20] VITALS (7 sets, daily range): BP systolic 106–154; BP diastolic 57–86; PULSE 57–89; RESP 15–18; TEMP 36.6–36.7; O2SAT 94–99
--- NOTE | 2025-06-20 08:14 | ECG_ITS ---
Test Date: 2025-06-20 08:15:51 Measurements Intervals [place] Rate: 60 P: 35 OK: 197 QRS: 24 QRSD: 109 T: 50 QT: 447 QTc: 447 Interpretive Statements SINUS RHYTHM WITH SINUS ARRHYTHMIA BASELINE ARTIFACT- AVL, V1 NORMAL ECG Compared to ECG 06/11/2025 01:02:07 HEART RATE HAS INCREASED FIRST DEGREE AV BLOCK NO LONGER PRESENT Electronically Signed On 06-20-2025 08:25:12 LIBRARIAN HELPER by Fei Shepherd D.O.
[2025-06-20] MEDS: SODIUM CHLORIDE 0.9% IV 1,000 ML 999 ML IV CONT ×2 (09:05→12:17)
[2025-06-20 09:30] LABS: Hematocrit 28.0 % (42.0-52.0); Hemoglobin 9.1 g/dL (14.0-18.0); Immature Granulocyte Percent A 1.3 % (0-0.5); Lymphocytes Absolute Auto 0.62 K/mm3 (0.9-3.2); Mean Corpuscular HGB Conc 32.5 g/dl (32-36); Mean Corpuscular Hemoglobin 30.0 pg (26-34); Mean Corpuscular Volume 92.4 fl (80-100); Nucleated Red Blood Cells Absolute Auto 0.000 K/mm3 (0.0-0.012); Nucleated Red Blood Cells Perc 0.0 % (0.0-0.2); Platelet Count Result 341 k/mm3 (150-375); Red Blood Count 3.03 M/mm3 (4.6-6.20); White Blood Count 8.9 K/mm3 (4.5-10.0)
[2025-06-20 09:34] LABS: Add Urine Microscopic? YES; Appearance Urine Clear (Clear); Glucose Urine UA Negative (Negative); Leukocyte Esterase Ur Negative LEU/UL (Negative); Nitrate Urine Negative (Negative); Specific Grav Ur 1.013 (1.001-1.035)
[2025-06-20 09:41] LABS: INR 2.7; Prothrombin Time 27.6 Seconds (11.1-14.7)
[2025-06-20 09:42] LABS: Partial Thromboplastin Time 64.9 Seconds (22.3-36.8)
[2025-06-20 09:50] LABS: Alanine Aminotransferase 93 U/L (6-50); Albumin Level 3.2 g/dL (3.5-5.1); Alkaline Phosphatase 50 U/L (38-126); Anion Gap 4 mmol/L (4-12); Aspartate Amino Transferase 73 U/L (17-59); Bilirubin,Total 0.8 mg/dL (0.2-1.3); Blood Urea Nitrogen 20 mg/dL (9-20); Calcium 8.5 mg/dL (8.4-10.2); Carbon Dioxide 26 mmol/L (22-30); Chloride 104 mmol/L (98-107); Estimated CRCL calculation 49 ml/min; Estimated Glomerular Filt Rate 54; Glucose 138 mg/dL (65-110); Potassium 4.3 mmol/L (3.4-5.0); Sodium 134 mmol/L (137-145); Total Protein 6.1 g/dL (6.3-8.2)
--- NOTE | 2025-06-20 11:58 | ED.GENADULT ---
HPI - General Adult General Chief complaint: Dizziness Stated complaint: dizzy Time Seen by Provider: 06/20/25 08:11 History of Present Illness HPI narrative: Patient is a 75-year-old male who presents ER with dizziness. He got up from bed bananas walking to the bathroom is getting very lightheaded and had to sit down. Patient was released from [facility] yesterday after a 1 week stay related to a traumatic hip fracture with surgical fixation. Complicated by a hematoma to left hip and the need for a blood transfusion. No fall today. He is on Xarelto. No dark black stools. No fevers or chills or sweats. No chest pain or chest pressure. Reports his blood pressure improved after being placed on a cot by EMS and going out into the cold air. No numbness or weakness to an arm or leg. Related Data Home Medications ?Medication ?Instructions ?Recorded ?Confirmed ?Last Taken ?Type fluticasone furoate 100 1 inh inhalation DAILY 07/07/21 11/19/23 11/18/23 History mcg-vilanterol 25 mcg/dose inhalation powder (Breo Ellipta) rivaroxaban 20 mg tablet (Xarelto) 20 mg PO DAILY 05/12/22 11/19/23 11/18/23 History rosuvastatin 5 mg tablet 5 mg PO DAILY 05/12/22 11/19/23 11/18/23 History Allergies Allergy/AdvReac Type Severity Reaction Status Date / Time tetracycline Allergy Mild Abdominal Verified 06/20/25 08:14 Pain Review of Systems Review of Systems: All systems reviewed & are unremarkable except as noted in HPI and below Constitutional: Constitutional: Reports no additional constitutional complaints ENT: Reports system reviewed and no additional complaints, except as documented Cardiovascular: Cardiovascular: Reports no additional cardiovascular complaints Respiratory: Respiratory: Reports no additional respiratory complaints Musculoskeletal: Musculoskeletal: Reports no additional musculoskeletal complaints [facility] Past Medical History Medical History CKD (chronic kidney disease) Ascending aortic aneurysm MRA September 2021 showing ascending Ao aneurysm at 4.5cm at the root Paroxysmal SVT (supraventricular tachycardia) Atrial fibrillation GERD (gastroesophageal reflux disease) Asthma Bleeding ulcer Duodenal ulcer 2008 Surgical History Surgical History History of sinus surgery Family History Family History Father Thyroid disorder Sibling Asthma Grandparent Cancer Cerebrovascular accident Social History Social History Social History: Patient lives at home with his and grandson. Lifelong nonsmoker. Denies alcohol or drug use. No history of drug use. They have a dog. He is full code. He nominates his to be the individual who would make medical decisions for him if he is unable. Smoking status: Never smoker Second hand tobacco smoke exposure: Yes Alcohol intake: never Drinks per week: 6 Alcohol use details: vodka Substance use: never Substance use type: does not use Lack of Transportation: No Lack of Food: Never True Current Housing: I Have Housing Concerned About Future Housing: No Difficulty Paying Gas/Electric Bills: No Difficulty Paying for Meds: No Currently Unemployed: No Education: Trade/Vocational Certificate Difficulty w/ Childcare or Family Care: No Living arrangements: with family Occupation/Education: retired Gender identity (if verbalized by the patient): Male Sexual Orientation (if Verbalized by the Patient): Straight or Heterosexual Spiritual care concerns: No Exam Narrative: GENERAL: Well-appearing, well-nourished, and in no acute distress. HEAD: Normocephalic, atraumatic. ENT: Mucous membranes moist. CHEST: Clear to auscultation. No respiratory distress. HEART: Regular rate and rhythm. Normal peripheral pulses. ABDOMEN: Soft, nontender, nondistended. EXTREMITIES: Normal range of motion. No edema. Left hip dressing with dried serous drainage. Labeled 06/19/2025. Left foot in a walking boot due to known previous fracture. SKIN: Warm, dry, no rash. NEURO: Alert and oriented x3. PSYCH: Normal mood and affect. Course Course Emergency Course: Very slight drop in blood pressure with orthostatics. Received 1 L IV fluid. Repeat orthostatics systolic blood pressure going from 142 to 108. He was asymptomatic. He is provided another L of fluid. Patient able to get up and ambulate without dizziness. Hemoglobin 9.1 but he is not reporting any active bleeding and is known to be anemic given his recent transfusion, he was as low as [address] [facility].. Vital Signs Vital signs: Vital Signs Temperature 97.9 F 06/20/25 08:11 Pulse Rate 61 06/20/25 08:11 Respiratory Rate 15 06/20/25 08:11 Blood Pressure 133/68 06/20/25 08:11 Pulse Oximetry 99 06/20/25 08:11 Oxygen Delivery Room Air 06/20/25 08:11 Temperature 98.1 F 06/20/25 09:33 Pulse Rate 89 06/20/25 09:33 Respiratory Rate 15 06/20/25 08:11 Blood Pressure 125/86 06/20/25 09:33 Pulse Oximetry 94 06/20/25 09:33 Oxygen Delivery Room Air 06/20/25 08:11 MDM Differential Diagnosis Differential Diagnosis: Acute GI bleed, dehydration acute kidney injury, electrolyte derangement Lab Data 06/20/25 09:19 06/20/25 09:19 Labs: Lab Results 06/20/25 Range/Units 09:19 WBC 8.9 (4.5-10.0) K/mm3 RBC 3.03 L (4.6-6.20) M/mm3 Hgb 9.1 L D (14.0-18.0) g/dL Hct 28.0 L (42.0-52.0) % MCV 92.4 (80-100) fl MCH 30.0 (26-34) pg MCHC 32.5 (32-36) g/dl RDW 13.5 (11.5-14.5) % Plt Count 341 (150-375) k/mm3 MPV 9.5 (7.4-10.4) fl Immature Gran % (Auto) 1.3 H (0-0.5) % Neut % (Auto) 81.6 H (45.5-73.1) % Lymph % (Auto) 6.9 L (18.3-44.2) % [place] % (Auto) 8.0 (2.6-8.5) % Eos % (Auto) 1.8 (0-4.4) % Baso % (Auto) 0.4 (0.2-1.2) % Lymph # (Auto) 0.62 L (0.9-3.2) K/mm3 [place] # (Auto) 0.7 H (0.1-0.6) K/mm3 Eos # (Auto) 0.2 (0-0.3) K/mm3 Baso # (Auto) 0.0 (0.0-0.1) K/mm3 Abs Immat Gran (auto) 0.12 H (0.00-0.031) K/mm3 Absolute Neuts (auto) 7.3 H (1.3-6.7) K/mm3 Absolute Nucleated RBC 0.000 (0.0-0.012) K/mm3 Nucleated RBC % 0.0 (0.0-0.2) % PT 27.6 H (11.1-14.7) Seconds INR 2.7 APTT 64.9 H (22.3-36.8) Seconds Sodium 134 L (137-145) mmol/L Potassium 4.3 (3.4-5.0) mmol/L Chloride 104 (98-107) mmol/L Carbon Dioxide 26 (22-30) mmol/L Anion Gap 4 (4-12) mmol/L BUN 20 (9-20) mg/dL Creatinine 1.31 H (0.7-1.3) mg/dL Estim Creat Clear Calc 49 ml/min Estimated GFR 54 L (59 - ) Glucose 138 H (65-110) mg/dL Calcium 8.5 (8.4-10.2) mg/dL Total Bilirubin 0.8 (0.2-1.3) mg/dL AST 73 H (17-59) U/L ALT 93 H (6-50) U/L Alkaline Phosphatase 50 (38-126) U/L Total Protein 6.1 L (6.3-8.2) g/dL Albumin 3.2 L (3.5-5.1) g/dL Urine Color Yellow (Yellow) Urine Appearance Clear (Clear) Urine pH 8.5 (5.0-9.0) Ur Specific [place] 1.013 (1.001-1.035) Urine Protein Trace (Negative) mg/dL Urine Glucose (UA) Negative (Negative) mg/dL Urine Ketones Negative (Negative) mg/dL Ur Blood (Man) 2+ H (Negative) Urine Nitrate Negative (Negative) Urine Bilirubin Negative (Negative) Urine Urobilinogen 1.0 (<2.0) mg/dL Leukocyte Esterase Rfl Negative (Negative) ISABEL/UL Urine RBC 6-10 H (0-2) /hpf Urine WBC 0-5 (0-3) /hpf Ur Squamous Epith Cells None seen (Few) /hpf Urine Bacteria None seen /hpf Urine Casts 3-5 Discharge Plan Discharge Clinical Impression: Orthostasis, Dehydration Patient Disposition: Home Condition: Stable Instructions: Dehydration (ED) Additional Instructions: Return ER if you have chest pain shortness of breath, you cannot keep down food water, you lose consciousness, or you have additional concerns. Make sure to stay well hydrated so you can start having bowel movements and so you do not get lightheaded. Patient Language: Swedish Prescriptions: No Action Breo Ellipta 100-25 mcg/dose blister with device 1 inh inhalation DAILY rosuvastatin 5 mg tablet 5 mg PO DAILY Xarelto 20 mg tablet 20 mg PO DAILY flecainide 100 mg Tablet 100 mg PO Q12HR Qty: 60 1RF Follow-up/Referrals: UNKNOWN,DOCTOR [Primary Care Provider] - 1 Week
--- NOTE | 2025-06-20 14:08 | PC.NURSE ---
Patient ambulated hallway approx 50 feet with use of walker. No complaints of dizziness. BETTY Burgess and JOSHUA Gomez aware.
== END 2025-06-20 14:36 | disposition home or self-care (01) ==
PROVIDERS: Emergency Provider Emergency Medicine
DX: I95.1 Orthostatic hypotension (principal); E86.0 Dehydration; S72.002G Fracture of unspecified part of neck of left femur, subsequent encounter for closed fracture with delayed healing; W19.XXXD Unspecified fall, subsequent encounter; N18.9 Chronic kidney disease, unspecified; I48.91 Unspecified atrial fibrillation; J45.909 Unspecified asthma, uncomplicated; Z79.01 Long term (current) use of anticoagulants; Z79.899 Other long term (current) drug therapy; Z77.22 Contact with and (suspected) exposure to environmental tobacco smoke (acute) (chronic)
CPT/HCPCS: 36415; 80053; 81001; 85025; 85610; 85730; 93005; 96360; 96361; 99283; J7030